=== PATIENT | male | born 1965 | race American Indian/Alaskan Native ===

== ENCOUNTER 2019-12-20 20:45 | Inpatient (IN) | payer OTHER ==
--- NOTE | 2019-12-20 20:54 | Event Note ---
ED Screening Note Date of service: 12/20/19 Time: 20:54 ED Screening Note: 54-year-old -[place] male presents to the emergency room for shortness of breath and chest pain. This initial assessment/diagnostic orders/clinical plan/treatment(s) is/are subject to change based on patients health status, clinical progression and re- assessment by fellow clinical providers in the ED. Further treatment and workup at subsequent clinical providers discretion. Patient/guardian urged not to elope from the ED as their condition may be serious if not clinically assessed and managed. Initial orders include:
[2019-12-20 21:10] LABS: Basophils # (Auto) 0.1 K/mm3 (0.0-0.1); Basophils % (Auto) 0.5 % (0.0-1.8); Eosinophils # (Auto) 0.2 K/mm3 (0.0-0.4); Eosinophils % (Auto) 1.9 % (0.0-4.3); Hematocrit 39.8 % (35.5-45.6); Hemoglobin 13.9 gm/dl (11.8-15.2); Lymphocytes # (Auto) 1.4 K/mm3 (1.2-5.4); Lymphocytes % (Auto) 11.9 % (13.4-35.0); Mean Corpuscular HGB Conc 35 % (32-34); Mean Corpuscular Volume 87 fl (84-94); Monocytes # (Auto) 1.2 K/mm3 (0.0-0.8); Monocytes % (Auto) 10.7 % (0.0-7.3); Platelet Count 213 K/mm3 (140-440); Red Blood Count 4.55 M/mm3 (3.65-5.03); Red Cell Distribution Width 14.2 % (13.2-15.2)
[2019-12-20 21:33] LABS: Alanine Aminotransferase 18 units/L (7-56); Albumin 3.9 g/dL (3.9-5); BUN/Creatinine Ratio 15; Blood Urea Nitrogen 20 mg/dL (9-20); Calcium 9.5 mg/dL (8.4-10.2); Hemolysis Index 8
--- NOTE | 2019-12-20 21:39 | XRay Report ---
CHEST 2 VIEWS, 12/20/2019 9:17 PM INDICATION: Chest pain. COMPARISON: None FINDINGS: Support devices: None Heart: The cardiac silhouette appears mildly enlarged. Lungs/pleura: There are faint bilateral pulmonary opacities, most prominent at the right lung base. Additional findings: There are moderate degenerative changes of the thoracic spine. IMPRESSION: 1. Faint bilateral pulmonary opacities. This is a nonspecific finding and could be secondary to mild pulmonary edema. Infectious or inflammatory process could have a similar appearance. Signer Name: Chely Spencer MD Signed: 12/20/2019 9:35 PM Workstation Name: [id number]
[2019-12-20] MEDS ORDERED: ONDANSETRON 4 MG/2 ML INJ IV ONE (22:59)
[2019-12-20] MEDS ORDERED: MORPHINE 2 MG/1 ML INJ IV ONE (22:59)
--- NOTE | 2019-12-20 23:07 | Emergency Department Report ---
ED Chest Pain HPI - General Chief Complaint: Chest Pain Stated Complaint: CHEST PAIN Time Seen by Provider: 12/20/19 20:52 Source: patient Mode of arrival: Wheelchair Limitations: No Limitations - History of Present Illness Initial Comments: 54-year-old male with history of hypertension, diabetes presents to ED with left-sided chest pain. Patient states chest pain initially began 3 days ago but resolved. States chest pain returned on yesterday but was intermittent. Pain has been constant today. Patient states pain is on the left side of his chest. The pain is sharp. The pain is worse with inspiration and laying supine. Patient denies fever, cough, sore throat, vomiting or diarrhea. He denies any known contact with any persons that are COVID positive. 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 He states that he has been having some swelling in the left that "has always been there. " MD Complaint: chest pain -: days(s) (3) Onset: during rest Pain Location: left chest Pain Radiation: none Severity: severe Quality: sharp Consistency: constant Improves With: other (sitting upright) Worsens With: supine re: dyspnea. denies: nausea, vomting, diaphoresis Other Symptoms: leg swelling. denies: cough, fever - Related Data Home Medications Medication Instructions Recorded Confirmed Last Taken No Known Home Medications [No 12/21/19 12/21/19 Unknown Reported Home Medications] Allergies Allergy/AdvReac Type Severity Reaction Status Date / Time No Known Allergies Allergy Verified 12/20/19 23:59 Heart Score - HEART Score History: Moderately suspicious EKG: Non-specific Age: 45-65 Risk factors: > 3 risk factors or hx of atherosclerotic disease Troponin: < normal limit HEART Score: 5 ED Review of Systems ROS: Stated complaint: CHEST PAIN Other details as noted in HPI Comment: All other systems reviewed and negative Constitutional: denies: chills, fever Respiratory: shortness of breath. denies: cough Cardiovascular: chest pain Gastrointestinal: denies: abdominal pain, nausea, vomiting, diarrhea Musculoskeletal: other (reports left leg swelling) ED Past Medical Hx - Medications Home Medications: Home Medications Medication Instructions Recorded Confirmed Last Taken Type No Known Home Medications [No 12/21/19 12/21/19 Unknown History Reported Home Medications] ED Physical Exam - General Limitations: No Limitations General appearance: alert, obese - Head Head exam: Present: atraumatic, normocephalic - Eye Eye exam: Present: normal appearance - ENT ENT exam: Present: mucous membranes moist - Neck Neck exam: Present: normal inspection - Respiratory Respiratory exam: Present: normal lung sounds bilaterally. Absent: respiratory distress - Cardiovascular Cardiovascular Exam: Present: tachycardia - GI/Abdominal GI/Abdominal exam: Present: soft. Absent: distended, tenderness - Extremities Exam Extremities exam: Present: other (left lower leg swelling present) - Neurological Exam Neurological exam: Present: alert, oriented X3 - Psychiatric Psychiatric exam: Present: normal affect, normal mood - Skin Skin exam: Present: warm, dry, intact, normal color ED Course Vital Signs 12/20/19 12/20/19 12/20/19 20:48 22:24 22:45 Temperature 97.7 F Pulse Rate 92 H 171 H 145 H Respiratory 18 14 35 H Rate Blood Pressure 151/83 Blood Pressure 145/72 [Left] O2 Sat by Pulse 93 93 Oximetry 12/20/19 12/20/19 12/20/19 23:01 23:13 23:57 Temperature Pulse Rate 150 H 150 H 175 H Respiratory 50 H 35 H Rate Blood Pressure 147/92 149/83 Blood Pressure [Left] O2 Sat by Pulse 95 96 Oximetry 12/21/19 12/21/19 12/21/19 00:01 00:49 01:01 Temperature Pulse Rate 100 H 113 H 88 Respiratory 41 H 25 H Rate Blood Pressure 143/65 138/70 138/70 Blood Pressure [Left] O2 Sat by Pulse 94 96 Oximetry 12/21/19 12/21/19 12/21/19 01:30 02:01 02:31 Temperature Pulse Rate 177 H 152 H Respiratory 29 H 22 27 H Rate Blood Pressure 138/70 150/65 159/130 Blood Pressure [Left] O2 Sat by Pulse 99 96 Oximetry 12/21/19 12/21/19 12/21/19 03:01 03:31 04:01 Temperature Pulse Rate 180 H 149 H 150 H Respiratory 31 H 34 H 22 Rate Blood Pressure 150/65 150/65 150/65 Blood Pressure [Left] O2 Sat by Pulse 97 95 96 Oximetry 12/21/19 12/21/19 12/21/19 04:31 05:01 05:05 Temperature Pulse Rate 166 H 138 H 150 H Respiratory 19 30 H Rate Blood Pressure 132/72 128/79 128/79 Blood Pressure [Left] O2 Sat by Pulse 97 98 Oximetry 12/21/19 12/21/19 12/21/19 05:31 06:01 06:30 Temperature Pulse Rate 142 H 149 H 148 H Respiratory 35 H 30 H 22 Rate Blood Pressure 128/79 128/79 115/85 Blood Pressure [Left] O2 Sat by Pulse 97 95 97 Oximetry 12/21/19 12/21/19 12/21/19 07:00 07:31 08:01 Temperature Pulse Rate 90 148 H 148 H Respiratory 32 H 28 H 18 Rate Blood Pressure 121/75 106/83 121/85 Blood Pressure [Left] O2 Sat by Pulse 97 96 96 Oximetry - Reevaluation(s) Reevaluation #1: 12/20/19 23:54 Pt w/ HR ranging from 130s to 180s. Repeat EKG shows Afib w/ RVR. Will give cardizem. 12/21/19 00:02 HR currently 90s-100s, following cardizem. Will initiate drip. Reevaluation #2: 12/21/19 02:31 Spoke w/ hospitalist, Dr Monk, who will admit. Would like COVID test sent and initiate rocephin, azithromycin, and hydroxychloroquine. ED Medical Decision Making - Lab Data Result diagrams: 12/24/19 03:39 12/24/19 03:39 - EKG Data -: EKG Interpreted by Ia EKG shows normal: QRS complexes, ST-T waves Rate: tachycardia (rate 165) - EKG Data Interpretation: other (Afib w/ RVR) - Radiology Data Radiology results: report reviewed, image reviewed - Medical Decision Making 54-year-old male with left-sided chest pain, shortness of breath x3 days. Patient reports pain is pleuritic, worse with laying supine. Chest x-ray was done which showed faint bilateral opacities, so COVID-19 was considered, althoug h patient denies fever, cough, vomiting or diarrhea. Patient was found to be tachycardic. Initial EKG showed normal heart rate. EKG was repeated which showed A. fib with RVR. Cardizem bolus was given. Patient responded well with heart rate decreasing from the 160s to the 90s. Cardizem and heparin drip were also initiated. Patient reports some relief of his chest pain after heart rate improved. CT scan negative for PE, but shows moderate left-sided pleural effusion which is likely the cause of patient's discomfort. I spoke with hospitalist Dr. Donnelly, requested COVID testing for patient and initiation of rocephin, azithromycin, and hydroxychloroquine. Patient will be admitted for further management. - Differential Diagnosis PE, pneumothroax, pneumonia, COVID infection Critical Care Time: Yes Critical care time in (mins) excluding proc time.: 35 Critical care attestation.: If time is entered above; I have spent that time in minutes in the direct care of this critically ill patient, excluding procedure time. Critical Care Time: 35 min ED Disposition Clinical Impression: Atrial fibrillation with rapid ventricular response, Pleural effusion, Suspected 2019 novel coronavirus infection Disposition: 09 OP ADMIT IP TO THIS HOSP Is pt being admited?: Yes Condition: Stable Time of Disposition: 03:33
[2019-12-20] MEDS ORDERED: dilTIAZem 50 MG/10 ML INJ ONE (23:42)
[2019-12-20] MEDS ORDERED: dilTIAZem 25 MG/5 ML INJ IV ONE (23:52)
[2019-12-20 23:57] LABS: INR 1.36 (0.87-1.13)
[2019-12-20 23:58] LABS: Partial Thromboplastin Time 28.7 Sec. (24.2-36.6)
[2019-12-21 00:51] LABS: C-Reactive Protein 42.1 mg/dL (0.00-1.30)
[2019-12-21] MEDS ORDERED: dilTIAZem/D5W 100 MG/100 ML BAG IV SCH (01:00)
[2019-12-21] MEDS ORDERED: HEPARIN 10,000 UNITS/10 ML VIAL IV ONE (01:06)
[2019-12-21] MEDS ORDERED: HEPARIN/ 0.45% NACL DRIP 25,000 UNIT/500 ML BAG IV SCH (02:00)
[2019-12-21] MEDS ORDERED: MORPHINE 4 MG/1 ML INJ ONE (02:05)
--- NOTE | 2019-12-21 02:19 | Cat Scan Report ---
CTA CHEST WITH CONTRAST INDICATION / CLINICAL INFORMATION: Pt complains of LEFT chest pain, S.O.B., Possible [place] Virus. Also Possible P.E. Omnipaque 350 / 100ml's was used for this exam.. COVID-19 Status: Uncertain TECHNIQUE: Axial CT images were obtained through the chest after injection of IV contrast. 3 plane MIP and/or 3D reconstructions were produced. All CT scans at this location are performed using CT dose reduction f or ALARA by means of automated exposure control. COMPARISON: Chest radiograph dated 12/20/19 FINDINGS: PULMONARY ARTERIES: No pulmonary emboli. THORACIC AORTA: No significant abnormality. HEART: Heart is mildly enlarged. No pericardial effusion. CORONARY ARTERIES: No significant calcification. MEDIASTINUM / ASHER: No significant abnormality. PLEURA: Moderate sized left pleural effusion. No pneumothorax. LUNGS: Moderate passive atelectasis of the left lower lobe related to pleural effusion. Multiple nodu lar densities throughout the right lung involving all lobes. These nodules have slightly fuzzy margin s and could be inflammatory in nature. No definite groundglass opacities. ADDITIONAL FINDINGS: None. UPPER ABDOMEN: No acute findings. SKELETAL STRUCTURES: No significant osseous abnormality. IMPRESSION: 1. No CT evidence for pulmonary embolism. 2. Moderate left pleural effusion with passive atelectasis of the left lower lobe. 3. Multiple nodular densities throughout the right lung which could possibly be inflammatory in natur e. Signer Name: Adilia Velarde MD Signed: 12/21/2019 2:14 AM Workstation Name: [id number]
[2019-12-21] MEDS ORDERED: MORPHINE 4 MG/1 ML INJ IV ONE (02:24)
[2019-12-21] MEDS ORDERED: cefTRIAXone/NS 1 GM/50 ML 1 GM/50 ML BAG IV ONE (02:34)
[2019-12-21] MEDS ORDERED: AZITHROMYCIN 250 MG TAB PO ONE (02:35)
[2019-12-21] MEDS ORDERED: HYDROXYCHLOROQUINE 200 MG TAB PO ONE ×2 (03:30→14:00)
[2019-12-21] MEDS ORDERED: ONDANSETRON 4 MG/2 ML INJ IV PRN (04:30)
[2019-12-21] MEDS ORDERED: NALOXONE 0.4 MG/1 ML INJ IV PRN (04:30)
[2019-12-21] MEDS ORDERED: FUROSEMIDE 40 MG/4 ML INJ IV STA (04:30)
[2019-12-21] MEDS ORDERED: LIDOCAINE-MPF (1%) 10 MG/1 ML VIAL 5 ML INFILTRATI ONE (04:40)
[2019-12-21] MEDS ORDERED: METOPROLOL TARTRATE 5 MG/5 ML INJ IV STA (04:43)
--- NOTE | 2019-12-21 04:52 | History and Physical Report ---
History of Present Illness Date of examination: 12/21/19 Date of admission: 12/21/19 Chief complaint: Chest Pain X 3 days History of present illness: 54-year-old male with history of Hypertension, Diabetes, truncal obesity, presents to ED with left-sided chest pain in the last 3 days. Patient states chest pain initially began 3 days ago but resolved. States chest discomfort returned on yesterday but was intermittent this time around, with on and off consistency. Pain has been constant all day and so he decided to seek medical attention today. Patient states pain is on the left side of his chest, and sharp. The pain is worse with inspiration and laying supine. Patient denies any general malaise, arthralgia, loss of taste or smell, low grade fever, high fever, cough, sore throat, vomiting or diarrhea. He denies any known contact with any person that is COVID 19 positive. 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 He states that he has been having some swelling in the left side of his trunk, that "has always been there. " PT denies any previous hx of DVT, PE, CP, sudden .. In the ED, pt was found to have bilateral opacities on CXR. A stat CTA PE protocol was done and it was negative for a PE however it revealed a left sided Moderate effusion. COVID 19 was considered and so pt was placed in a droplet and contact isolations COVID19: Pending Past History Past Medical History: diabetes, hypertension Social history: IV drug use, full code. denies: smoking, alcohol abuse, prescription drug abuse Family history: diabetes Medications and Allergies Allergies Allergy/AdvReac Type Severity Reaction Status Date / Time No Known Allergies Allergy Verified 12/20/19 23:59 Active Meds: Active Medications Acetaminophen (Tylenol) 650 mg PO Q4H PRN PRN Reason: Pain MILD(1-3)/Fever >100.5/NOLASCO Furosemide (Lasix) 20 mg IV QDAY YVETTE Hydroxychloroquine Sulfate (Plaquenil) 400 mg PO ONCE ONE Stop: 12/21/19 14:01 Diltiazem HCl (Cardizem/D5w 100mg/100ml) 100 mg in 100 mls @ 5 mls/hr IV TITR YVETTE; Protocol Last Titration: 12/21/19 02:22 Dose: 15 mg/hr, 15 mls/hr Documented by: Heparin Sodium/Sodium Chloride (Heparin/ 0.45% Nacl-25,000 Unit/500 Ml) 25,000 unit in 500 mls @ 30 mls/hr IV TITR YVETTE; Protocol Last Admin: 12/21/19 02:03 Dose: 1,500 units/hr, 30 mls/hr Documented by: Ceftriaxone Sodium 2,000 mg/ (Sodium Chloride) 50 mls @ 100 mls/hr IV DAILY NR; Protocol Lidocaine (Xylocaine 1% Mpf 5 Ml) 2 ml INFILTRATI ONCE ONE Stop: 12/21/19 04:41 Metoprolol Tartrate (Metoprolol) 5 mg IV ONCE STA Stop: 12/21/19 04:44 Morphine Sulfate (Morphine) 2 mg IV Q4H PRN PRN Reason: Pain, Moderate (4-6) Naloxone HCl (Naloxone) 0.1 mg IV Q2MIN PRN PRN Reason: Res Rate </= 8 or 02 SAT < 92% Ondansetron HCl (Zofran) 4 mg IV Q8H PRN PRN Reason: Nausea And Vomiting Oxycodone/Acetaminophen (Percocet 5/325) 1 tab PO Q6H PRN PRN Reason: Pain, Moderate (4-6) Sodium Chloride (Sodium Chloride Flush Syringe 10 Ml) 10 ml IV BID YVETTE Sodium Chloride (Sodium Chloride Flush Syringe 10 Ml) 10 ml IV PRN PRN PRN Reason: LINE FLUSH Review of Systems All systems: negative Respiratory: shortness of breath, pain on inspiration Exam - Constitutional Vitals: Temp Pulse Resp BP Pulse Ox 97.7 F 88 25 H 138/70 96 12/20/19 20:48 12/21/19 01:01 12/21/19 01:01 12/21/19 01:01 12/21/19 01:01 General appearance: Present: no acute distress, well-nourished - EENT Eyes: Present: PERRL ENT: hearing intact, clear oral mucosa - Neck Neck: Present: supple, normal ROM - Respiratory Respiratory effort: normal Respiratory: left: diminished, rhonchi, bilateral: CTA - Cardiovascular Heart Sounds: Present: S1 & S2. Absent: rub, click - Extremities Extremities: pulses symmetrical, No edema Peripheral Pulses: within normal limits - Abdominal General gastrointestinal: Present: soft, non-tender, non-distended, normal bowel sounds Male genitourinary: Present: normal - Integumentary Integumentary: Present: clear, warm, dry - Musculoskeletal Musculoskeletal: gait normal, strength equal bilaterally - Psychiatric Psychiatric: appropriate mood/affect, intact judgment & insight - Neurologic Neurologic: CNII-XII intact, moves all extremities Results - Labs CBC & Chem 7: 12/20/19 20:59 12/20/19 20:59 Labs: Laboratory Last Values WBC 11.4 K/mm3 (4.5-11.0) H 12/20/19 20:59 RBC 4.55 M/mm3 (3.65-5.03) 12/20/19 20:59 Hgb 13.9 gm/dl (11.8-15.2) 12/20/19 20:59 Hct 39.8 % (35.5-45.6) 12/20/19 20:59 MCV 87 fl (84-94) 12/20/19 20:59 MCH 31 pg (28-32) 12/20/19 20:59 MCHC 35 % (32-34) H 12/20/19 20:59 RDW 14.2 % (13.2-15.2) 12/20/19 20:59 Plt Count 213 K/mm3 (140-440) 12/20/19 20:59 Lymph % (Auto) 11.9 % (13.4-35.0) L 12/20/19 20:59 Hill % (Auto) 10.7 % (0.0-7.3) H 12/20/19 20:59 Eos % (Auto) 1.9 % (0.0-4.3) 12/20/19 20:59 Baso % (Auto) 0.5 % (0.0-1.8) 12/20/19 20:59 Lymph # 1.4 K/mm3 (1.2-5.4) 12/20/19 20:59 Hill # 1.2 K/mm3 (0.0-0.8) H 12/20/19 20:59 Eos # 0.2 K/mm3 (0.0-0.4) 12/20/19 20:59 Baso # 0.1 K/mm3 (0.0-0.1) 12/20/19 20:59 Seg Neutrophils % 75.0 % (40.0-70.0) H 12/20/19 20:59 Seg Neutrophils # 8.6 K/mm3 (1.8-7.7) H 12/20/19 20:59 PT 17.0 Sec. (12.2-14.9) H 12/20/19 23:06 INR 1.36 (0.87-1.13) H 12/20/19 23:06 APTT 28.7 Sec. (24.2-36.6) 12/20/19 23:06 D-Dimer 870.11 ng/mlDDU (0-234) H 12/20/19 23:06 Sodium 134 mmol/L (137-145) L 12/20/19 20:59 Potassium 4.4 mmol/L (3.6-5.0) 12/20/19 20:59 Chloride 95.6 mmol/L (98-107) L 12/20/19 20:59 Carbon Dioxide 22 mmol/L (22-30) 12/20/19 20:59 Anion Gap 21 mmol/L 12/20/19 20:59 BUN 20 mg/dL (9-20) 12/20/19 20:59 Creatinine 1.3 mg/dL (0.8-1.5) 12/20/19 20:59 Estimated GFR > 60 ml/min 12/20/19 20:59 BUN/Creatinine Ratio 15 % 12/20/19 20:59 Glucose 174 mg/dL (75-100) H 12/20/19 20:59 Calcium 9.5 mg/dL (8.4-10.2) 12/20/19 20:59 Ferritin 454.6 ng/mL (13.0-400.0) H 12/20/19 23:06 Total Bilirubin 0.50 mg/dL (0.1-1.2) 12/20/19 20:59 AST 16 units/L (5-40) 12/20/19 20:59 ALT 18 units/L (7-56) 12/20/19 20:59 Alkaline Phosphatase 66 units/L (35-129) 12/20/19 20:59 Lactate Dehydrogenase 193 units/L (91-180) H 12/20/19 23:06 Troponin T < 0.010 ng/mL (0.00-0.029) 12/21/19 03:43 C-Reactive Protein 42.10 mg/dL (0.00-1.30) H 12/20/19 23:06 NT-Pro-B Natriuret Pep 134.4 pg/mL (0-900) 12/20/19 23:06 Total Protein 8.7 g/dL (6.3-8.2) H 12/20/19 20:59 Albumin 3.9 g/dL (3.9-5) 12/20/19 20:59 Albumin/Globulin Ratio 0.8 % 12/20/19 20:59 Lipase 21 units/L (13-60) 12/20/19 20:59 Cuevas/IV: IV Catheter Type [Left INT / Saline Lock Antecubital] IV Catheter Type [Left Hand] INT / Saline Lock Assessment and Plan Assessment and plan: CHest Pain -Etiology sought in this pt with moderate left pleural effusion, bilateral infiltrates on CXR and slightly positive serum inflammatory markers that are suggestive of Covid 19. - Start Rocephin IV and Hydrochloroquine -Droplet and contact isolations ordered - Cycle Troponins, CHeck an TTecho - continue telemonitoring LEft Pleural effusion - etiology sought? CHF vs inflammatory causes - await TTEcho, PACO, RF -continue OXygen support - IV lasix Afib with RVR - Due to moderate left pleural effusion - continue heparin gtt, Cardizem gtt - intermittent use of Lopressor HTN - essential and longstanding -LVH present on ECG. - control BP effectively DM - Accuchecks - monitor full code.
[2019-12-21] MEDS: MORPHINE 2 MG/1 ML INJ IV PRN ×2 (08:58→17:26)
--- NOTE | 2019-12-21 09:58 | Progress Note ---
Assessment and Plan Assessment and plan: COVID-19 suspected - Etiology sought in this pt with moderate left pleural effusion, bilateral infiltrates on CXR and slightly positive serum inflammatory markers that are suggestive of Covid 19. - Start Rocephin IV and Hydrochloroquine - Droplet and contact isolations ordered - Cycle Troponins, CHeck an TTecho - continue telemonitoring Bilateral pneumonia. Continue antibiotics as above Sepsis. Continue antibiotics and follow-up blood cultures. Left Pleural effusion - etiology likely parapneumonic - await Echo, PACO, RF - continue Oxygen support - IV lasix Acute hypoxemic respiratory failure. Etiology secondary to above. Continue O2 for supportive care Afib with RVR - Due to moderate left pleural effusion - continue heparin gtt, Cardizem gtt - intermittent use of Lopressor HTN - essential and longstanding - LVH present on ECG. - control BP effectively DM - Accuchecks - monitor full code. History Interval history: No new issues overnight. COVID19: Pending Hospitalist Physical - Constitutional Vitals: Temp Pulse Resp BP Pulse Ox 97.7 F 147 H 18 138/83 92 12/20/19 20:48 12/21/19 08:52 12/21/19 08:58 12/21/19 08:52 12/21/19 08:52 General appearance: Present: no acute distress, well-nourished - EENT Eyes: Present: PERRL, EOM intact ENT: hearing intact, clear oral mucosa, dentition normal - Neck Neck: Present: supple, normal ROM - Respiratory Respiratory effort: normal Respiratory: bilateral: CTA - Cardiovascular Rhythm: regular Heart Sounds: Present: S1 & S2. Absent: gallop, rub - Extremities Extremities: no ischemia, No edema, Full ROM - Abdominal General gastrointestinal: soft, non-tender, non-distended, normal bowel sounds - Integumentary Integumentary: Present: clear, warm, dry - Neurologic Neurologic: CNII-XII intact, moves all extremities Results - Labs CBC & Chem 7: 12/20/19 20:59 12/20/19 20:59 Labs: Laboratory Last Values WBC 11.4 K/mm3 (4.5-11.0) H 12/20/19 20:59 RBC 4.55 M/mm3 (3.65-5.03) 12/20/19 20:59 Hgb 13.9 gm/dl (11.8-15.2) 12/20/19 20:59 Hct 39.8 % (35.5-45.6) 12/20/19 20:59 MCV 87 fl (84-94) 12/20/19 20:59 MCH 31 pg (28-32) 12/20/19 20:59 MCHC 35 % (32-34) H 12/20/19 20:59 RDW 14.2 % (13.2-15.2) 12/20/19 20:59 Plt Count 213 K/mm3 (140-440) 12/20/19 20:59 Lymph % (Auto) 11.9 % (13.4-35.0) L 12/20/19 20:59 [place] % (Auto) 10.7 % (0.0-7.3) H 12/20/19 20:59 Eos % (Auto) 1.9 % (0.0-4.3) 12/20/19 20:59 Baso % (Auto) 0.5 % (0.0-1.8) 12/20/19 20:59 Lymph # 1.4 K/mm3 (1.2-5.4) 12/20/19 20:59 [place] # 1.2 K/mm3 (0.0-0.8) H 12/20/19 20:59 Eos # 0.2 K/mm3 (0.0-0.4) 12/20/19 20:59 Baso # 0.1 K/mm3 (0.0-0.1) 12/20/19 20:59 Seg Neutrophils % 75.0 % (40.0-70.0) H 12/20/19 20:59 Seg Neutrophils # 8.6 K/mm3 (1.8-7.7) H 12/20/19 20:59 PT 17.0 Sec. (12.2-14.9) H 12/20/19 23:06 INR 1.36 (0.87-1.13) H 12/20/19 23:06 APTT 28.7 Sec. (24.2-36.6) 12/20/19 23:06 D-Dimer 870.11 ng/mlDDU (0-234) H 12/20/19 23:06 Sodium 134 mmol/L (137-145) L 12/20/19 20:59 Potassium 4.4 mmol/L (3.6-5.0) 12/20/19 20:59 Chloride 95.6 mmol/L (98-107) L 12/20/19 20:59 Carbon Dioxide 22 mmol/L (22-30) 12/20/19 20:59 Anion Gap 21 mmol/L 12/20/19 20:59 BUN 20 mg/dL (9-20) 12/20/19 20:59 Creatinine 1.3 mg/dL (0.8-1.5) 12/20/19 20:59 Estimated GFR > 60 ml/min 12/20/19 20:59 BUN/Creatinine Ratio 15 % 12/20/19 20:59 Glucose 174 mg/dL (75-100) H 12/20/19 20:59 Calcium 9.5 mg/dL (8.4-10.2) 12/20/19 20:59 Ferritin 454.6 ng/mL (13.0-400.0) H 12/20/19 23:06 Total Bilirubin 0.50 mg/dL (0.1-1.2) 12/20/19 20:59 AST 16 units/L (5-40) 12/20/19 20:59 ALT 18 units/L (7-56) 12/20/19 20:59 Alkaline Phosphatase 66 units/L (35-129) 12/20/19 20:59 Lactate Dehydrogenase 193 units/L (91-180) H 12/20/19 23:06 Troponin T < 0.010 ng/mL (0.00-0.029) 12/21/19 03:43 C-Reactive Protein 42.10 mg/dL (0.00-1.30) H 12/20/19 23:06 NT-Pro-B Natriuret Pep 134.4 pg/mL (0-900) 12/20/19 23:06 Total Protein 8.7 g/dL (6.3-8.2) H 12/20/19 20:59 Albumin 3.9 g/dL (3.9-5) 12/20/19 20:59 Albumin/Globulin Ratio 0.8 % 12/20/19 20:59 Lipase 21 units/L (13-60) 12/20/19 20:59 Procalcitonin 0.61 ng/mL (<0.15) 12/20/19 23:06 Cuevas/IV: Voiding Method Urinal IV Catheter Type [Left INT / Saline Lock Antecubital] IV Catheter Type [Left Hand] INT / Saline Lock Active Medications - Current Medications Current Medications: Generic Name Dose Route Start Last Admin Trade Name Freq PRN Reason Stop Dose Admin Acetaminophen 650 mg 12/21/19 04:30 Tylenol PO Q4H PRN Pain MILD(1-3)/Fever >100.5/NOLASCO Furosemide 20 mg 12/21/19 10:00 Lasix IV QDAY YVETTE Hydroxychloroquine Sulfate 400 mg 12/21/19 14:00 Plaquenil PO 12/21/19 14:01 ONCE ONE Diltiazem HCl 100 mg in 100 mls @ 5 mls/hr 12/21/19 01:00 12/21/19 02:22 Cardizem/D5w 100mg/100ml IV 15 mg/hr TITR YVETTE 15 mls/hr Titration Protocol 5 MG/HR Heparin Sodium/Sodium Chloride 25,000 unit in 500 mls @ 30 mls/hr 12/21/19 02:00 12/21/19 02:03 Heparin/ 0.45% Nacl-25,000 Unit/500 Ml IV 1,500 units/hr TITR YVETTE 30 mls/hr Administration Protocol 1,500 UNITS/HR Ceftriaxone Sodium 2,000 mg/ 50 mls @ 100 mls/hr 12/22/19 10:00 Sodium Chloride IV 12/27/19 23:59 DAILY NR Protocol Morphine Sulfate 2 mg 12/21/19 04:30 12/21/19 08:58 Morphine IV 2 mg Q4H PRN Administration Pain, Moderate (4-6) Naloxone HCl 0.1 mg 12/21/19 04:30 Naloxone IV Q2MIN PRN Res Rate </= 8 or 02 SAT < 92% Ondansetron HCl 4 mg 12/21/19 04:30 Zofran IV Q8H PRN Nausea And Vomiting Oxycodone/Acetaminophen 1 tab 12/21/19 04:30 Percocet 5/325 PO Q6H PRN Pain, Moderate (4-6) Sodium Chloride 10 ml 12/21/19 10:00 Sodium Chloride Flush Syringe 10 Ml IV BID YVETTE Sodium Chloride 10 ml 12/21/19 04:30 Sodium Chloride Flush Syringe 10 Ml IV PRN PRN LINE FLUSH
[2019-12-21 10:41] LABS: Hematocrit 44.2 % (35.5-45.6); Hemoglobin 14.6 gm/dl (11.8-15.2); Mean Corpuscular HGB Conc 33 % (32-34); Mean Corpuscular Volume 89 fl (84-94); Platelet Count 240 K/mm3 (140-440); Red Blood Count 4.97 M/mm3 (3.65-5.03); Red Cell Distribution Width 13.6 % (13.2-15.2)
[2019-12-21] MEDS: FUROSEMIDE 20 MG/2 ML INJ IV SCH (10:54)
[2019-12-21 10:55] LABS: INR 1.35 (0.87-1.13)
[2019-12-21 11:21] LABS: Partial Thromboplastin Time 40.2 Sec. (24.2-36.6)
[2019-12-21 11:24] LABS: BUN/Creatinine Ratio 17; Blood Urea Nitrogen 25 mg/dL (9-20); Calcium 9.3 mg/dL (8.4-10.2); Hemolysis Index 0
[2019-12-21 12:10] LABS: Band Neutrophils # (Manual) 0.6 K/mm3; Basophils % (Manual) 0 % (0.0-1.8); Total Cells Counted 100
[2019-12-21 12:12] LABS: Large Platelets Rare; Platelet Estimate Consistent w Auto; RBC Morphology Normal
--- NOTE | 2019-12-21 13:45 | Consultation ---
History of Present Illness Consult date: 12/21/19 Requesting physician: KIM SIMMS Consult reason: atrial fibrillation History of present illness: the pt is a 54-year-old male with a past medical history of HTN and DM. He is previously unknown to our practice. He presented with "pain all over the left side" of his body and some SOB which began about 3 days ago. Patient states he is experiencing some left sided chest pain, pain is on the left side of his chest, and sharp. The pain is worse with inspiration and laying supine. Patient denies any general malaise, arthralgia, loss of taste or smell, low grade fever, high fever, cough, sore throat, vomiting or diarrhea. He denies any known contact with any person that is COVID 19 positive. 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 He states that he has been having some swelling in the left side of his trunk, that "has always been there. " Following arrival, pt noted to have AFib with RVR and was initiated on cardizem gtt and heparin gtt overnight. On evaluation, he has since converted to NSR. Pt denies any known prior cardiac issues. Of note, pt is currently COVID-19 PUI. Past History Past Medical History: diabetes, hypertension Social history: IV drug use, full code. denies: smoking, alcohol abuse, prescription drug abuse Family history: diabetes Medications and Allergies Allergies Allergy/AdvReac Type Severity Reaction Status Date / Time No Known Allergies Allergy Verified 12/20/19 23:59 Active Meds: Active Medications Acetaminophen (Tylenol) 650 mg PO Q4H PRN PRN Reason: Pain MILD(1-3)/Fever >100.5/NOLASCO Furosemide (Lasix) 20 mg IV QDAY [facility] Last Admin: 12/21/19 10:54 Dose: 20 mg Documented by: Hydroxychloroquine Sulfate (Plaquenil) 400 mg PO ONCE ONE Stop: 12/21/19 14:01 Ceftriaxone Sodium (Rocephin/Ns 2 Gm/100 Ml) 2 gm in 100 mls @ 200 mls/hr IV QHS [facility] Stop: 12/27/19 23:59 Morphine Sulfate (Morphine) 2 mg IV Q4H PRN PRN Reason: Pain, Moderate (4-6) Last Admin: 12/21/19 08:58 Dose: 2 mg Documented by: Naloxone HCl (Naloxone) 0.1 mg IV Q2MIN PRN PRN Reason: Res Rate </= 8 or 02 SAT < 92% Ondansetron HCl (Zofran) 4 mg IV Q8H PRN PRN Reason: Nausea And Vomiting Oxycodone/Acetaminophen (Percocet 5/325) 1 tab PO Q6H PRN PRN Reason: Pain, Moderate (4-6) Sodium Chloride (Sodium Chloride Flush Syringe 10 Ml) 10 ml IV BID YVETTE Last Admin: 12/21/19 10:54 Dose: 10 ml Documented by: Sodium Chloride (Sodium Chloride Flush Syringe 10 Ml) 10 ml IV PRN PRN PRN Reason: LINE FLUSH Review of Systems Constitutional: no weight loss, no weight gain, no fever, no chills, no sweats Ears, nose, mouth and throat: no ear pain, no nose pain, no sinus pressure, no sinus pain Cardiovascular: chest pain, shortness of breath, no palpitations, no rapid/irregular heart beat Respiratory: shortness of breath, pain on inspiration, no cough, no congestion, no wheezing Gastrointestinal: no abdominal pain, no nausea, no vomiting, no diarrhea, no constipation, no change in bowel habits, no hematemesis Genitourinary Male: no dysuria, no hematuria, no flank pain, no discharge, no urinary frequency, no urinary hesitancy Musculoskeletal: no neck stiffness, no neck pain, no shooting arm pain, no arm numbness/tingling, no low back pain, no shooting leg pain Integumentary: no rash, no pruritis, no redness, no sores, no wounds Neurological: no head injury, no paralysis, no weakness, no parathesias, no numbness, no tingling, no seizures, no syncope Psychiatric: no anxiety Endocrine: no cold intolerance, no heat intolerance Hematologic/Lymphatic: no easy bruising Allergic/Immunologic: no urticaria Physical Examination Vital Signs Temp Pulse Resp BP Pulse Ox 97.7 F 92 H 18 151/83 93 12/20/19 20:48 12/20/19 20:48 12/20/19 20:48 12/20/19 20:48 12/20/19 20:48 General appearance: no acute distress HEENT: Positive: PERRL, Normocephaly, Mucus Membranes Moist Neck: Positive: neck supple, trachea midline Cardiac: Positive: Reg Rate and Rhythm, S1/S2 Lungs: Positive: Decreased Breath Sounds Neuro: Positive: Grossly Intact Abdomen: Negative: Tender Male genitourinary: Negative: tender Skin: Negative: Rash Musculoskeletal: No Pain Extremities: Absent: edema Results 12/21/19 10:35 12/21/19 10:35 Cardiac Enzymes 12/20/19 12/20/19 Range/Units 20:59 23:06 AST 16 (5-40) units/L Lactate Dehydrogenase 193 H (91-180) units/L Coagulation 12/20/19 12/21/19 Range/Units 23:06 10:35 PT 17.0 H 16.9 H (12.2-14.9) Sec. INR 1.36 H 1.35 H (0.87-1.13) APTT 28.7 40.2 H (24.2-36.6) Sec. CBC 12/20/19 12/21/19 Range/Units 20:59 10:35 WBC 11.4 H 21.3 H (4.5-11.0) K/mm3 RBC 4.55 4.97 (3.65-5.03) M/mm3 Hgb 13.9 14.6 (11.8-15.2) gm/dl Hct 39.8 44.2 (35.5-45.6) % Plt Count 213 240 (140-440) K/mm3 Lymph # 1.4 (1.2-5.4) K/mm3 [place] # 1.2 H (0.0-0.8) K/mm3 Eos # 0.2 (0.0-0.4) K/mm3 Baso # 0.1 (0.0-0.1) K/mm3 Comprehensive Metabolic Panel 12/20/19 12/21/19 Range/Units 20:59 10:35 Sodium 134 L 137 (137-145) mmol/L Potassium 4.4 5.4 H D (3.6-5.0) mmol/L Chloride 95.6 L 93.8 L (98-107) mmol/L Carbon Dioxide 22 23 (22-30) mmol/L BUN 20 25 H (9-20) mg/dL Creatinine 1.3 1.5 (0.8-1.5) mg/dL Glucose 174 H 239 H (75-100) mg/dL Calcium 9.5 9.3 (8.4-10.2) mg/dL AST 16 (5-40) units/L ALT 18 (7-56) units/L Alkaline Phosphatase 66 (35-129) units/L Total Protein 8.7 H (6.3-8.2) g/dL Albumin 3.9 (3.9-5) g/dL - Imaging and Cardiology EKG: report reviewed, image reviewed EKG interpretations - Telemetry EKG Rhythm: Sinus Rhythm - EKG Supraventricular dysrhythmia: atrial fibrillation Assessment and Plan Pt has converted to NSR. D/c cardizem and heparin gtts. Initiate PO cardizem and Eliquis. Obtain thyroid profile and serum Mg. R/o COVID-19 per primary team. Pro-BNP WNL. Obtain echo pending COVID test results. Cont to monitor closely on telemetry. Further recs to follow per hospital course. The patient has been seen in conjunction with Dr. Roa who agrees with the assessment and plan of care. - Patient Problems (1) Atrial fibrillation with rapid ventricular response Current Visit: Yes Status: Acute (2) Pleural effusion Current Visit: Yes Status: Acute (3) Suspected 2019 novel coronavirus infection Current Visit: Yes Status: Acute (4) HTN (hypertension) Current Visit: Yes Status: Chronic (5) Diabetes Current Visit: Yes Status: Chronic
--- NOTE | 2019-12-21 15:18 | Consultation ---
History of Present Illness - Reason for Consult Consult date: 12/21/19 COVID rule out Requesting physician: BRITNEY GOINS COVID19: Pending - History of Present Illness The patient is a 54-year-old male with hypertension, diabetes, obesity who came into the emergency room with complaints of left-sided chest pain. CT chest revealed evidence of left-sided pleural effusion along with nodular densities in his right lung. Infectious diseases was consulted due to elevated WBC and concern for possible COVID. History obtained by chart review due to PPE shortage. Low grade fever + Review of Systems: reviewed in the chart, unable to obtain directly due to PPE shortage and preservation Past History Past Medical History: diabetes, hypertension Social history: IV drug use, full code. denies: smoking, alcohol abuse, prescription drug abuse Family history: diabetes Medications and Allergies Allergies Allergy/AdvReac Type Severity Reaction Status Date / Time No Known Allergies Allergy Verified 12/20/19 23:59 Active Meds: Active Medications Acetaminophen (Tylenol) 650 mg PO Q4H PRN PRN Reason: Pain MILD(1-3)/Fever >100.5/NOLASCO Apixaban (Eliquis) 5 mg PO Q12HR [facility]; Protocol Diltiazem HCl (Cardizem) 60 mg PO Q6HR YVETTE Furosemide (Lasix) 20 mg IV QDAY [facility] Last Admin: 12/21/19 10:54 Dose: 20 mg Documented by: Ceftriaxone Sodium (Rocephin/Ns 2 Gm/100 Ml) 2 gm in 100 mls @ 200 mls/hr IV QHS [facility] Stop: 12/27/19 23:59 Morphine Sulfate (Morphine) 2 mg IV Q4H PRN PRN Reason: Pain, Moderate (4-6) Last Admin: 12/21/19 08:58 Dose: 2 mg Documented by: Naloxone HCl (Naloxone) 0.1 mg IV Q2MIN PRN PRN Reason: Res Rate </= 8 or 02 SAT < 92% Ondansetron HCl (Zofran) 4 mg IV Q8H PRN PRN Reason: Nausea And Vomiting Oxycodone/Acetaminophen (Percocet 5/325) 1 tab PO Q6H PRN PRN Reason: Pain, Moderate (4-6) Sodium Chloride (Sodium Chloride Flush Syringe 10 Ml) 10 ml IV BID [facility] Last Admin: 04/14/20 10:54 Dose: 10 ml Documented by: Sodium Chloride (Sodium Chloride Flush Syringe 10 Ml) 10 ml IV PRN PRN PRN Reason: LINE FLUSH Physical Examination - Physical Exam Narrative exam: Physical Exam (reviewed in chart due to PPE conservation) Constitutional: limited due to PPE conservation strategy Head, Ears, Nose: limited due to PPE conservation strategy Eyes: limited due to PPE conservation strategy Neck: limited due to PPE conservation strategy Oral: limited due to PPE conservation strategy Cardiovascular: limited due to PPE conservation strategy Respiratory: limited due to PPE conservation strategy GI: limited due to PPE conservation strategy Musculoskeletal: limited due to PPE conservation strategy Skin: limited due to PPE conservation strategy Hem/Lymphatic: limited due to PPE conservation strategy Psych: limited due to PPE conservation strategy Neurological: limited due to PPE conservation strategy - Constitutional Vitals: Vital Signs Temp Pulse Resp BP Pulse Ox 99.9 F H 144 H 24 132/74 93 12/21/19 11:23 12/21/19 11:23 12/21/19 11:23 12/21/19 11:23 12/21/19 11:23 Temperature -Last 24 Hours Temperature 99.9 F Temperature 97.7 F Results - Labs CBC & Chem 7: 12/21/19 10:35 12/21/19 10:35 Labs: Abnormal lab results 12/20/19 12/20/19 12/20/19 Range/Units 20:59 20:59 23:06 WBC 11.4 H (4.5-11.0) K/mm3 MCHC 35 H (32-34) % Lymph % (Auto) 11.9 L (13.4-35.0) % [place] % (Auto) 10.7 H (0.0-7.3) % [place] # 1.2 H (0.0-0.8) K/mm3 Seg Neutrophils % 75.0 H (40.0-70.0) % Seg Neuts % (Manual) (40.0-70.0) % Lymphocytes % (Manual) (13.4-35.0) % Monocytes % (Manual) (0.0-7.3) % Seg Neutrophils # 8.6 H (1.8-7.7) K/mm3 Seg Neutrophils # Man (1.8-7.7) K/mm3 Lymphocytes # (Manual) (1.2-5.4) K/mm3 Monocytes # (Manual) (0.0-0.8) K/mm3 PT 17.0 H (12.2-14.9) Sec. INR 1.36 H (0.87-1.13) APTT (24.2-36.6) Sec. D-Dimer 870.11 H (0-234) ng/mlDDU Heparin Anti-Xa Level (0.3-0.7) U.I./ml Sodium 134 L (137-145) mmol/L Potassium (3.6-5.0) mmol/L Chloride 95.6 L (98-107) mmol/L BUN (9-20) mg/dL Glucose 174 H (75-100) mg/dL POC Glucose (70-105) Ferritin (13.0-400.0) ng/mL Lactate Dehydrogenase (91-180) units/L C-Reactive Protein (0.00-1.30) mg/dL Total Protein 8.7 H (6.3-8.2) g/dL 12/20/19 12/20/19 12/21/19 Range/Units 23:06 23:06 10:35 WBC (4.5-11.0) K/mm3 MCHC (32-34) % Lymph % (Auto) (13.4-35.0) % [place] % (Auto) (0.0-7.3) % [place] # (0.0-0.8) K/mm3 Seg Neutrophils % (40.0-70.0) % Seg Neuts % (Manual) (40.0-70.0) % Lymphocytes % (Manual) (13.4-35.0) % Monocytes % (Manual) (0.0-7.3) % Seg Neutrophils # (1.8-7.7) K/mm3 Seg Neutrophils # Man (1.8-7.7) K/mm3 Lymphocytes # (Manual) (1.2-5.4) K/mm3 Monocytes # (Manual) (0.0-0.8) K/mm3 PT 16.9 H (12.2-14.9) Sec. INR 1.35 H (0.87-1.13) APTT 40.2 H (24.2-36.6) Sec. D-Dimer (0-234) ng/mlDDU Heparin Anti-Xa Level 0.14 L (0.3-0.7) U.I./ml Sodium (137-145) mmol/L Potassium (3.6-5.0) mmol/L Chloride (98-107) mmol/L BUN (9-20) mg/dL Glucose (75-100) mg/dL POC Glucose (70-105) Ferritin 454.6 H (13.0-400.0) ng/mL Lactate Dehydrogenase 193 H (91-180) units/L C-Reactive Protein 42.10 H (0.00-1.30) mg/dL Total Protein (6.3-8.2) g/dL 12/21/19 12/21/19 12/21/19 Range/Units 10:35 10:35 11:33 WBC 21.3 H (4.5-11.0) K/mm3 MCHC (32-34) % Lymph % (Auto) (13.4-35.0) % [place] % (Auto) (0.0-7.3) % [place] # (0.0-0.8) K/mm3 Seg Neutrophils % (40.0-70.0) % Seg Neuts % (Manual) 82.0 H (40.0-70.0) % Lymphocytes % (Manual) 4.0 L (13.4-35.0) % Monocytes % (Manual) 10.0 H (0.0-7.3) % Seg Neutrophils # (1.8-7.7) K/mm3 Seg Neutrophils # Man 17.5 H (1.8-7.7) K/mm3 Lymphocytes # (Manual) 0.9 L (1.2-5.4) K/mm3 Monocytes # (Manual) 2.1 H (0.0-0.8) K/mm3 PT (12.2-14.9) Sec. INR (0.87-1.13) APTT (24.2-36.6) Sec. D-Dimer (0-234) ng/mlDDU Heparin Anti-Xa Level (0.3-0.7) U.I./ml Sodium (137-145) mmol/L Potassium 5.4 H D (3.6-5.0) mmol/L Chloride 93.8 L (98-107) mmol/L BUN 25 H (9-20) mg/dL Glucose 239 H (75-100) mg/dL POC Glucose 223 H (70-105) Ferritin (13.0-400.0) ng/mL Lactate Dehydrogenase (91-180) units/L C-Reactive Protein (0.00-1.30) mg/dL Total Protein (6.3-8.2) g/dL - Imaging and Cardiology CT scan - chest: report reviewed, image reviewed (R nodular infiltrates. Left pleural effusion) Assessment and Plan Cultures: None A/P: 54-year-old male with hypertension, diabetes, obesity who came into the emergency room with complaints of left-sided chest pain #Left pleural effusion #Right lung multiple nodular infiltrates #Leucocytosis Recs: Agree with COVID-19 rule out however low suspicion Given left-sided pleural effusion as well as right-sided nodular infiltrates, concern for possible malignancy. Consider pulmonary consult We will order fungal work-up: Cryptococcus antigen, histoplasma urinary antigen, Aspergillus galactomannan and 1 3 beta D glucan HIV also ordered Okay to continue ceftriaxone for now No need for Plaquenil at this time Anival Teresa MD, FACP [facility] C: [phone] O: [phone] F: [phone]
[2019-12-21] MEDS: ACETAMINOPHEN 325 MG TAB PO PRN ×2 (16:14→22:52)
[2019-12-21] MEDS: dilTIAZem 60 MG TAB PO SCH ×2 (17:24→22:16)
[2019-12-21] MEDS: cefTRIAXone/NS 2 GM/100 ML 2 GM/100 ML BAG IV SCH (22:15)
[2019-12-21] MEDS: APIXABAN 5 MG TAB PO SCH (22:16)
[2019-12-21] MEDS: oxyCODONE /ACETAMINOPHEN 5-325MG TAB PO PRN (22:16)
[2019-12-21] MEDS: INSULIN REGULAR, HUMAN 100 UNITS/1 ML SUB-Q SCH (22:17)
[2019-12-22] MEDS: dilTIAZem 60 MG TAB PO SCH ×5 (00:21→23:39)
[2019-12-22 06:18] LABS: Hematocrit 41.6 % (35.5-45.6); Mean Corpuscular HGB Conc 34 % (32-34); Mean Corpuscular Volume 88 fl (84-94); Platelet Count 237 K/mm3 (140-440); Red Blood Count 4.71 M/mm3 (3.65-5.03); Red Cell Distribution Width 14.1 % (13.2-15.2)
[2019-12-22 06:39] LABS: Calcium 9.6 mg/dL (8.4-10.2)
[2019-12-22 07:14] LABS: Basophils % (Manual) 0 % (0.0-1.8); Total Cells Counted 100
[2019-12-22 07:15] LABS: Anisocytosis 1+; Platelet Estimate Consistent w Auto
[2019-12-22] MEDS: INSULIN REGULAR, HUMAN 100 UNITS/1 ML SUB-Q SCH ×5 (08:23→22:14)
[2019-12-22] MEDS: oxyCODONE /ACETAMINOPHEN 5-325MG TAB PO PRN ×3 (09:00→22:55)
[2019-12-22] MEDS: APIXABAN 5 MG TAB PO SCH ×2 (09:00→22:13)
[2019-12-22] MEDS: FUROSEMIDE 20 MG/2 ML INJ IV SCH (09:00)
--- NOTE | 2019-12-22 09:15 | Progress Note ---
Assessment and Plan Assessment and plan: COVID-19 suspected - Etiology sought in this pt with moderate left pleural effusion, bilateral infiltrates on CXR and slightly positive serum inflammatory markers that are suggestive of Covid 19. -Continue Rocephin IV and Hydrochloroquine - Droplet and contact isolations ordered - continue telemonitoring Bilateral pneumonia. Continue antibiotics as above Sepsis. Continue antibiotics and follow-up blood cultures. Left Pleural effusion - etiology likely parapneumonic -Follow-up echocardiogram - continue Oxygen support - IV lasix per cardiology recommendation Acute hypoxemic respiratory failure. Etiology secondary to above. Continue O2 for supportive care Afib with RVR Cardizem p.o. HTN - essential and longstanding - LVH present on ECG. - control BP effectively DM - Accuchecks - monitor full code. 12/22/2019. Patient changed from Cardizem drip to Cardizem p.o. Continue Eliquis. Heparin drip discontinued. Thyroid profile normal. Patient reportedly had 2 episodes of V. tach each less than 10 beat run. Follow-up echocardiogram. COVID-19 test is negative. The patient will be transferred to the telemetry floor. Continue Plaquenil. Cardiology and ID following. History Interval history: No new issues overnight. COVID19: Pending Hospitalist Physical - Constitutional Vitals: Temp Pulse Resp BP Pulse Ox 99.0 F 82 20 141/75 94 12/22/19 05:18 12/22/19 05:18 12/22/19 05:18 12/22/19 05:18 12/22/19 05:18 General appearance: Present: no acute distress - EENT Eyes: Present: PERRL, EOM intact ENT: hearing intact, clear oral mucosa, dentition normal - Neck Neck: Present: supple, normal ROM - Respiratory Respiratory effort: normal Respiratory: bilateral: CTA - Cardiovascular Rhythm: regular Heart Sounds: Present: S1 & S2. Absent: gallop, rub - Extremities Extremities: no ischemia, No edema, Full ROM - Abdominal General gastrointestinal: soft, non-tender, non-distended, normal bowel sounds - Integumentary Integumentary: Present: clear, warm, dry - Neurologic Neurologic: CNII-XII intact, moves all extremities Results - Labs CBC & Chem 7: 12/22/19 04:53 12/22/19 04:53 Labs: Laboratory Last Values WBC 20.8 K/mm3 (4.5-11.0) H 12/22/19 04:53 RBC 4.71 M/mm3 (3.65-5.03) 12/22/19 04:53 Hgb 14.0 gm/dl (11.8-15.2) 12/22/19 04:53 Hct 41.6 % (35.5-45.6) 12/22/19 04:53 MCV 88 fl (84-94) 12/22/19 04:53 MCH 30 pg (28-32) 12/22/19 04:53 MCHC 34 % (32-34) 12/22/19 04:53 RDW 14.1 % (13.2-15.2) 12/22/19 04:53 Plt Count 237 K/mm3 (140-440) 12/22/19 04:53 Lymph % (Auto) 11.9 % (13.4-35.0) L 12/20/19 20:59 [place] % (Auto) 10.7 % (0.0-7.3) H 12/20/19 20:59 Eos % (Auto) 1.9 % (0.0-4.3) 12/20/19 20:59 Baso % (Auto) 0.5 % (0.0-1.8) 12/20/19 20:59 Lymph # 1.4 K/mm3 (1.2-5.4) 12/20/19 20:59 [place] # 1.2 K/mm3 (0.0-0.8) H 12/20/19 20:59 Eos # 0.2 K/mm3 (0.0-0.4) 12/20/19 20:59 Baso # 0.1 K/mm3 (0.0-0.1) 12/20/19 20:59 Add Manual Diff Complete 12/22/19 04:53 Total Counted 100 12/22/19 04:53 Seg Neutrophils % 75.0 % (40.0-70.0) H 12/20/19 20:59 Seg Neuts % (Manual) 84.0 % (40.0-70.0) H 12/22/19 04:53 Band Neutrophils % 0 % 12/22/19 04:53 Lymphocytes % (Manual) 6.0 % (13.4-35.0) L 12/22/19 04:53 Reactive Lymphs % (Man) 0 % 12/22/19 04:53 Monocytes % (Manual) 9.0 % (0.0-7.3) H 12/22/19 04:53 Eosinophils % (Manual) 1.0 % (0.0-4.3) 12/22/19 04:53 Basophils % (Manual) 0 % (0.0-1.8) 12/22/19 04:53 Metamyelocytes % 0 % 12/22/19 04:53 Myelocytes % 0 % 12/22/19 04:53 Promyelocytes % 0 % 12/22/19 04:53 Blast Cells % 0 % 12/22/19 04:53 Nucleated RBC % Not Reportable 12/22/19 04:53 Seg Neutrophils # 8.6 K/mm3 (1.8-7.7) H 12/20/19 20:59 Seg Neutrophils # Man 17.5 K/mm3 (1.8-7.7) H 12/22/19 04:53 Band Neutrophils # 0.0 K/mm3 12/22/19 04:53 Lymphocytes # (Manual) 1.2 K/mm3 (1.2-5.4) 12/22/19 04:53 Abs React Lymphs (Man) 0.0 K/mm3 12/22/19 04:53 Monocytes # (Manual) 1.9 K/mm3 (0.0-0.8) H 12/22/19 04:53 Eosinophils # (Manual) 0.2 K/mm3 (0.0-0.4) 12/22/19 04:53 Basophils # (Manual) 0.0 K/mm3 (0.0-0.1) 12/22/19 04:53 Metamyelocytes # 0.0 K/mm3 12/22/19 04:53 Myelocytes # 0.0 K/mm3 12/22/19 04:53 Promyelocytes # 0.0 K/mm3 12/22/19 04:53 Blast Cells # 0.0 K/mm3 12/22/19 04:53 WBC Morphology Not Reportable 12/22/19 04:53 Hypersegmented Neuts Not Reportable 12/22/19 04:53 Hyposegmented Neuts Not Reportable 12/22/19 04:53 Hypogranular Neuts Not Reportable 12/22/19 04:53 Smudge Cells Not Reportable 12/22/19 04:53 Toxic Granulation Not Reportable 12/22/19 04:53 Toxic Vacuolation Not Reportable 12/22/19 04:53 Dohle Bodies Not Reportable 12/22/19 04:53 Pelger-Huet Anomaly Not Reportable 12/22/19 04:53 Kelly Rods Not Reportable 12/22/19 04:53 Platelet Estimate Consistent w auto 12/22/19 04:53 Clumped Platelets Not Reportable 12/22/19 04:53 Plt Clumps, EDTA Not Reportable 12/22/19 04:53 Large Platelets Not Reportable 12/22/19 04:53 Giant Platelets Not Reportable 12/22/19 04:53 Platelet Satelliting Not Reportable 12/22/19 04:53 Plt Morphology Comment Not Reportable 12/22/19 04:53 RBC Morphology Not Reportable 12/22/19 04:53 Dimorphic RBCs Not Reportable 12/22/19 04:53 Polychromasia Not Reportable 12/22/19 04:53 Hypochromasia Not Reportable 12/22/19 04:53 Poikilocytosis Not Reportable 12/22/19 04:53 Anisocytosis 1+ 12/22/19 04:53 Microcytosis Not Reportable 12/22/19 04:53 Macrocytosis Not Reportable 12/22/19 04:53 Spherocytes Not Reportable 12/22/19 04:53 Pappenheimer Bodies Not Reportable 12/22/19 04:53 Sickle Cells Not Reportable 12/22/19 04:53 Target Cells Not Reportable 12/22/19 04:53 Tear Drop Cells Not Reportable 12/22/19 04:53 Ovalocytes Not Reportable 12/22/19 04:53 Helmet Cells Not Reportable 12/22/19 04:53 [place] Bodies Not Reportable 12/22/19 04:53 [place] Rings Not Reportable 12/22/19 04:53 Naeem Cells Not Reportable 12/22/19 04:53 Bite Cells Not Reportable 12/22/19 04:53 Crenated Cell Not Reportable 12/22/19 04:53 Elliptocytes Not Reportable 12/22/19 04:53 Acanthocytes (Spur) Not Reportable 12/22/19 04:53 Rouleaux Not Reportable 12/22/19 04:53 Hemoglobin C Crystals Not Reportable 12/22/19 04:53 Schistocytes Not Reportable 12/22/19 04:53 Malaria parasites Not Reportable 12/22/19 04:53 Jay Bodies Not Reportable 12/22/19 04:53 Hem Pathologist Commnt No 12/22/19 04:53 PT 16.9 Sec. (12.2-14.9) H 12/21/19 10:35 INR 1.35 (0.87-1.13) H 12/21/19 10:35 APTT 40.2 Sec. (24.2-36.6) H 12/21/19 10:35 D-Dimer 870.11 ng/mlDDU (0-234) H 12/20/19 23:06 Heparin Anti-Xa Level 0.10 U.I./ml (0.3-0.7) L 12/21/19 16:31 Sodium 135 mmol/L (137-145) L 12/22/19 04:53 Potassium 4.7 mmol/L (3.6-5.0) 12/22/19 04:53 Chloride 92.3 mmol/L (98-107) L 12/22/19 04:53 Carbon Dioxide 23 mmol/L (22-30) 12/22/19 04:53 Anion Gap 24 mmol/L 12/22/19 04:53 BUN 33 mg/dL (9-20) H 12/22/19 04:53 Creatinine 1.7 mg/dL (0.8-1.5) H 12/22/19 04:53 Estimated GFR 51 ml/min 12/22/19 04:53 BUN/Creatinine Ratio 19 % 12/22/19 04:53 Glucose 175 mg/dL (75-100) H 12/22/19 04:53 POC Glucose 175 (70-105) H 12/22/19 07:46 Calcium 9.6 mg/dL (8.4-10.2) 12/22/19 04:53 Magnesium 2.60 mg/dL (1.7-2.3) H 12/21/19 10:39 Ferritin 454.6 ng/mL (13.0-400.0) H 12/20/19 23:06 Total Bilirubin 0.50 mg/dL (0.1-1.2) 12/20/19 20:59 AST 16 units/L (5-40) 12/20/19 20:59 ALT 18 units/L (7-56) 12/20/19 20:59 Alkaline Phosphatase 66 units/L (35-129) 12/20/19 20:59 Lactate Dehydrogenase 193 units/L (91-180) H 12/20/19 23:06 Troponin T < 0.010 ng/mL (0.00-0.029) 12/21/19 10:35 C-Reactive Protein 42.10 mg/dL (0.00-1.30) H 12/20/19 23:06 NT-Pro-B Natriuret Pep 134.4 pg/mL (0-900) 12/20/19 23:06 Total Protein 8.7 g/dL (6.3-8.2) H 12/20/19 20:59 Albumin 3.9 g/dL (3.9-5) 12/20/19 20:59 Albumin/Globulin Ratio 0.8 % 12/20/19 20:59 Lipase 21 units/L (13-60) 12/20/19 20:59 Procalcitonin 0.61 ng/mL (<0.15) 12/20/19 23:06 TSH 2.040 mlU/mL (0.270-4.200) 12/21/19 16:31 Free T4 1.13 ng/dL (0.76-1.46) 12/21/19 16:31 Cuevas/IV: Voiding Method Urinal IV Catheter Type [Right Wrist] INT / Saline Lock IV Catheter Type [Left INT / Saline Lock Antecubital] IV Catheter Type [Left Hand] INT / Saline Lock Active Medications - Current Medications Current Medications: Generic Name Dose Route Start Last Admin Trade Name Freq PRN Reason Stop Dose Admin Acetaminophen 650 mg 12/21/19 04:30 12/21/19 22:52 Tylenol PO 650 mg Q4H PRN Administration Pain MILD(1-3)/Fever >100.5/NOLASCO Apixaban 5 mg 12/21/19 22:00 12/22/19 09:00 Eliquis PO 5 mg Q12HR YVETTE Administration Protocol Diltiazem HCl 60 mg 12/21/19 18:00 12/22/19 05:50 Cardizem PO 60 mg Q6HR YVETTE Administration Furosemide 20 mg 12/21/19 10:00 12/22/19 09:00 Lasix IV 20 mg QDAY YVETTE Administration Ceftriaxone Sodium 2 gm in 100 mls @ 200 mls/hr 12/21/19 22:00 12/21/19 22:15 Rocephin/Ns 2 Gm/100 Ml IV 12/27/19 23:59 200 mls/hr QHS YVETTE Administration Insulin Human Regular 0 units 12/21/19 22:00 12/22/19 08:23 Humulin R SUB-Q 2 units ACHS YVTETE Administration Protocol Morphine Sulfate 2 mg 12/21/19 04:30 12/21/19 17:26 Morphine IV 2 mg Q4H PRN Administration Pain, Moderate (4-6) Naloxone HCl 0.1 mg 12/21/19 04:30 Naloxone IV Q2MIN PRN Res Rate </= 8 or 02 SAT < 92% Ondansetron HCl 4 mg 12/21/19 04:30 Zofran IV Q8H PRN Nausea And Vomiting Oxycodone/Acetaminophen 1 tab 12/21/19 04:30 12/22/19 09:00 Percocet 5/325 PO 1 tab Q6H PRN Administration Pain, Moderate (4-6) Sodium Chloride 10 ml 12/21/19 10:00 12/22/19 09:00 Sodium Chloride Flush Syringe 10 Ml IV 10 ml BID YVETTE Administration Sodium Chloride 10 ml 12/21/19 04:30 Sodium Chloride Flush Syringe 10 Ml IV PRN PRN LINE FLUSH Nutrition/Malnutrition Assess - Dietary Evaluation Nutrition/Malnutrition Findings: Nutrition Notes Start: 12/21/19 11:30 Freq: Status: Active Protocol: Document 12/21/19 11:37 LP (Rec: 12/21/19 11:46 LP [id number]) Nutrition Notes Need for 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 Pt did not answer phone. Nutrition Intervention Follow-Up By: 12/22/19 Additional Comments Follow for assessment
--- NOTE | 2019-12-22 10:13 | Progress Note ---
Assessment and Plan Pt is COVID-19 negative. Pt remains in NSR. Cont PO cardizem and Eliquis. Obtain echo. Pt may tx to telemetry as he is COVID negative. The patient has been seen in conjunction with Dr. Roa who agrees with the assessment and plan of care. - Patient Problems (1) Atrial fibrillation with rapid ventricular response Current Visit: Yes Status: Acute (2) Pleural effusion Current Visit: Yes Status: Acute (3) Suspected 2019 novel coronavirus infection Current Visit: Yes Status: Acute (4) HTN (hypertension) Current Visit: Yes Status: Chronic (5) Diabetes Current Visit: Yes Status: Chronic Subjective Date of service: 12/22/19 Principal diagnosis: AFib Interval history: no current complaints. in SR on telemetry. COVID19: Negative Objective Last Vital Signs Temp 99.0 F 12/22/19 05:18 Pulse 82 12/22/19 05:18 Resp 20 12/22/19 05:18 BP 141/75 12/22/19 05:18 Pulse Ox 94 12/22/19 05:18 - Physical Examination General: No Apparent Distress HEENT: Positive: PERRL, Normocephaly, Mucus Membranes Moist Neck: Positive: neck supple, trachea midline Cardiac: Positive: Reg Rate and Rhythm, S1/S2 Lungs: Positive: Decreased Breath Sounds Neuro: Positive: Grossly Intact Abdomen: Negative: Tender Skin: Negative: Rash Musculoskeletal: No Pain Extremities: Absent: edema - Labs and Meds Coagulation 12/21/19 Range/Units 10:35 PT 16.9 H (12.2-14.9) Sec. INR 1.35 H (0.87-1.13) APTT 40.2 H (24.2-36.6) Sec. CBC 12/21/19 12/22/19 Range/Units 10:35 04:53 WBC 21.3 H 20.8 H (4.5-11.0) K/mm3 RBC 4.97 4.71 (3.65-5.03) M/mm3 Hgb 14.6 14.0 (11.8-15.2) gm/dl Hct 44.2 41.6 (35.5-45.6) % Plt Count 240 237 (140-440) K/mm3 Comprehensive Metabolic Panel 12/21/19 12/22/19 Range/Units 10:35 04:53 Sodium 137 135 L (137-145) mmol/L Potassium 5.4 H D 4.7 (3.6-5.0) mmol/L Chloride 93.8 L 92.3 L (98-107) mmol/L Carbon Dioxide 23 23 (22-30) mmol/L BUN 25 H 33 H (9-20) mg/dL Creatinine 1.5 1.7 H (0.8-1.5) mg/dL Glucose 239 H 175 H (75-100) mg/dL Calcium 9.3 9.6 (8.4-10.2) mg/dL - Imaging and Cardiology EKG: report reviewed, image reviewed
--- NOTE | 2019-12-22 14:26 | Progress Note ---
Assessment and Plan Cultures/Microbiology: COVID-19: negative A/P: 54-year-old male with hypertension, diabetes, obesity who came into the emergency room with complaints of left-sided chest pain #Left pleural effusion: COVID negative. #Right lung multiple nodules. #Leucocytosis Recs: COVID-19 is negative, overall suspicion was anyways low. D/C isolation Continue IV Ceftriaxone, added IV Vancomycin, renally dosed Given left-sided pleural effusion as well as right-sided nodular infiltrates, concern for possible malignancy. Consider pulmonary consult f/u pending fungal work-up: Cryptococcus antigen, histoplasma urinary antigen, Aspergillus galactomannan and 1 3 beta D glucan HIV re-ordered (verbal consent obtained from patient) Autoimmune work up: PACO, C3, C4, ANCA Anival Teresa MD, FACP [facility] ([facility] C: [phone] O: [phone] F: [phone] Subjective Date of service: 12/22/19 Principal diagnosis: AFib Interval history: Low grade fever yesterday. None today. Feels slightly better. Still SOB +. COVID19: Pending Objective - Exam Narrative Exam: Physical Exam: Constitutional: Alert, cooperative. No acute distress. Obese Head, Ears, Nose: Normocephalic, atraumatic. External ears, nose normal Eyes: Conjunctivae/corneas clear. No icterus. No ptosis. Neck: Supple, no meningeal signs Cardiovascular: S1, S2 normal. Respiratory: AE decreased on left side. GI: Soft, non-tender; bowel sounds normal. No peritoneal signs Musculoskeletal: No pedal edema, no cyanosis. Skin: No rash or abscess Hem/Lymphatic: No palpable cervical or supraclavicular nodes. No lymphangitis Psych: Mood ok. Affect normal Neurological: Awake, alert, oriented. No gross abnormality - Constitutional Vitals: Vital Signs Temp Pulse Resp BP Pulse Ox 98.6 F 127 H 20 155/74 97 12/22/19 11:22 12/22/19 12:44 12/22/19 12:12 12/22/19 12:44 12/22/19 12:12 Temperature -Last 24 Hours Temperature 98.6 F Temperature 99.0 F Temperature 100.3 F Temperature 100.0 F - Labs CBC & Chem 7: 12/22/19 04:53 12/22/19 04:53 Labs: Abnormal lab results 12/21/19 12/21/19 12/21/19 Range/Units 10:39 16:19 16:31 WBC (4.5-11.0) K/mm3 Seg Neuts % (Manual) (40.0-70.0) % Lymphocytes % (Manual) (13.4-35.0) % Monocytes % (Manual) (0.0-7.3) % Seg Neutrophils # Man (1.8-7.7) K/mm3 Monocytes # (Manual) (0.0-0.8) K/mm3 Heparin Anti-Xa Level 0.10 L (0.3-0.7) U.I./ml Sodium (137-145) mmol/L Chloride (98-107) mmol/L BUN (9-20) mg/dL Creatinine (0.8-1.5) mg/dL Glucose (75-100) mg/dL POC Glucose 212 H (70-105) Magnesium 2.60 H (1.7-2.3) mg/dL 12/21/19 12/22/19 12/22/19 Range/Units 22:03 04:53 04:53 WBC 20.8 H (4.5-11.0) K/mm3 Seg Neuts % (Manual) 84.0 H (40.0-70.0) % Lymphocytes % (Manual) 6.0 L (13.4-35.0) % Monocytes % (Manual) 9.0 H (0.0-7.3) % Seg Neutrophils # Man 17.5 H (1.8-7.7) K/mm3 Monocytes # (Manual) 1.9 H (0.0-0.8) K/mm3 Heparin Anti-Xa Level (0.3-0.7) U.I./ml Sodium 135 L (137-145) mmol/L Chloride 92.3 L (98-107) mmol/L BUN 33 H (9-20) mg/dL Creatinine 1.7 H (0.8-1.5) mg/dL Glucose 175 H (75-100) mg/dL POC Glucose 188 H (70-105) Magnesium (1.7-2.3) mg/dL 04/15/20 04/15/20 Range/Units 07:46 11:33 WBC (4.5-11.0) K/mm3 Seg Neuts % (Manual) (40.0-70.0) % Lymphocytes % (Manual) (13.4-35.0) % Monocytes % (Manual) (0.0-7.3) % Seg Neutrophils # Man (1.8-7.7) K/mm3 Monocytes # (Manual) (0.0-0.8) K/mm3 Heparin Anti-Xa Level (0.3-0.7) U.I./ml Sodium (137-145) mmol/L Chloride (98-107) mmol/L BUN (9-20) mg/dL Creatinine (0.8-1.5) mg/dL Glucose (75-100) mg/dL POC Glucose 175 H 186 H (70-105) Magnesium (1.7-2.3) mg/dL
[2019-12-22] MEDS ORDERED: VANCOMYCIN PHARMACY TO DOSE IV SCH (15:00)
[2019-12-22] MEDS ORDERED: VANCOMYCIN 2,000 MG in SODIUM CHLORIDE 0.9% 500 ML 500 ML IV ONE (15:00)
[2019-12-22] MEDS: cefTRIAXone/NS 2 GM/100 ML 2 GM/100 ML BAG IV SCH (22:13)
[2019-12-22] MEDS ORDERED: VANCOMYCIN 2,000 MG in SODIUM CHLORIDE 0.9% 500 ML 500 ML IV SCH (23:00)
[2019-12-22] MEDS: ACETAMINOPHEN 325 MG TAB PO PRN (23:40)
[2019-12-23] MEDS: dilTIAZem 60 MG TAB PO SCH (05:58)
[2019-12-23] MEDS: ACETAMINOPHEN 325 MG TAB PO PRN (10:10)
[2019-12-23] MEDS: APIXABAN 5 MG TAB PO SCH ×2 (10:10→21:46)
[2019-12-23] MEDS: INSULIN REGULAR, HUMAN 100 UNITS/1 ML SUB-Q SCH ×4 (10:13→21:47)
[2019-12-23] MEDS: FUROSEMIDE 20 MG/2 ML INJ IV SCH (10:13)
[2019-12-23] MEDS: METOPROLOL TARTRATE 100 MG TAB PO SCH ×2 (10:22→21:45)
--- NOTE | 2019-12-23 10:25 | Consultation ---
History of Present Illness Consult date: 12/23/19 Requesting physician: KIM SIMMS Reason for consult: abnormal CXR/CT History of present illness: 54 y/o male admitted with shortness of breath and afib with RVR. CXR and CT scan reveal left sided effusion with atelectasis. CT scan shows right upper lobe nodules, noncalcified. Given negative COVID state, ID requested pulmonary to be consulted in regards to this patient. Past History Past Medical History: diabetes, hypertension Social history: IV drug use, full code. denies: smoking, alcohol abuse, prescription drug abuse Family history: diabetes Medications and Allergies Allergies Allergy/AdvReac Type Severity Reaction Status Date / Time No Known Allergies Allergy Verified 12/20/19 23:59 Home Medications Medication Instructions Recorded Confirmed Last Taken Type No Known Home Medications [No 12/21/19 12/21/19 Unknown History Reported Home Medications] Active Meds: Active Medications Acetaminophen (Tylenol) 650 mg PO Q4H PRN PRN Reason: Pain MILD(1-3)/Fever >100.5/NOLASCO Last Admin: 12/23/19 10:10 Dose: 650 mg Documented by: Apixaban (Eliquis) 5 mg PO Q12HR [facility]; Protocol Last Admin: 12/23/19 10:10 Dose: 5 mg Documented by: Furosemide (Lasix) 20 mg IV QDAY [facility] Last Admin: 12/23/19 10:13 Dose: 20 mg Documented by: Ceftriaxone Sodium (Rocephin/Ns 2 Gm/100 Ml) 2 gm in 100 mls @ 200 mls/hr IV QHS [facility] Last Admin: 12/22/19 22:13 Dose: 200 mls/hr Documented by: Vancomycin HCl 2,000 mg/ (Sodium Chloride) 540 mls @ 250 mls/hr IV Q24HR@1600 [facility]VETTE Insulin Human Regular (Humulin R) 0 units SUB-Q ACHS [facility]; Protocol Last Admin: 12/23/19 10:13 Dose: 2 units Documented by: Metoprolol Tartrate (Metoprolol) 100 mg PO BID [facility] Morphine Sulfate (Morphine) 2 mg IV Q4H PRN PRN Reason: Pain, Moderate (4-6) Last Admin: 12/21/19 17:26 Dose: 2 mg Documented by: Naloxone HCl (Naloxone) 0.1 mg IV Q2MIN PRN PRN Reason: Res Rate </= 8 or 02 SAT < 92% Ondansetron HCl (Zofran) 4 mg IV Q8H PRN PRN Reason: Nausea And Vomiting Oxycodone/Acetaminophen (Percocet 5/325) 1 tab PO Q6H PRN PRN Reason: Pain, Moderate (4-6) Last Admin: 12/22/19 22:55 Dose: 1 tab Documented by: Sodium Chloride (Sodium Chloride Flush Syringe 10 Ml) 10 ml IV BID YVETTE Last Admin: 12/23/19 10:13 Dose: 10 ml Documented by: Sodium Chloride (Sodium Chloride Flush Syringe 10 Ml) 10 ml IV PRN PRN PRN Reason: LINE FLUSH Physical Examination Vital signs: Vital Signs Temp Pulse Resp BP Pulse Ox 97.7 F 92 H 18 151/83 93 12/20/19 20:48 12/20/19 20:48 12/20/19 20:48 12/20/19 20:48 12/20/19 20:48 Results - Laboratory Findings CBC and BMP: 12/22/19 04:53 12/22/19 04:53 PT/INR, D-dimer PT 16.9 Sec. (12.2-14.9) H 12/21/19 10:35 INR 1.35 (0.87-1.13) H 12/21/19 10:35 D-Dimer 870.11 ng/mlDDU (0-234) H 12/20/19 23:06 Abnormal lab findings: Abnormal Labs 12/20/19 12/20/19 12/20/19 20:59 20:59 23:06 WBC 11.4 H MCHC 35 H Lymph % (Auto) 11.9 L [place] % (Auto) 10.7 H [place] # 1.2 H Seg Neutrophils % 75.0 H Seg Neuts % (Manual) Lymphocytes % (Manual) Monocytes % (Manual) Seg Neutrophils # 8.6 H Seg Neutrophils # Man Lymphocytes # (Manual) Monocytes # (Manual) PT 17.0 H INR 1.36 H APTT D-Dimer 870.11 H Heparin Anti-Xa Level Sodium 134 L Potassium Chloride 95.6 L BUN Creatinine Glucose 174 H POC Glucose Magnesium Ferritin Lactate Dehydrogenase C-Reactive Protein Total Protein 8.7 H 12/20/19 12/20/19 12/21/19 23:06 23:06 10:35 WBC MCHC Lymph % (Auto) [place] % (Auto) [place] # Seg Neutrophils % Seg Neuts % (Manual) Lymphocytes % (Manual) Monocytes % (Manual) Seg Neutrophils # Seg Neutrophils # Man Lymphocytes # (Manual) Monocytes # (Manual) PT 16.9 H INR 1.35 H APTT 40.2 H D-Dimer Heparin Anti-Xa Level 0.14 L Sodium Potassium Chloride BUN Creatinine Glucose POC Glucose Magnesium Ferritin 454.6 H Lactate Dehydrogenase 193 H C-Reactive Protein 42.10 H Total Protein 12/21/19 12/21/19 12/21/19 10:35 10:35 10:39 WBC 21.3 H MCHC Lymph % (Auto) [place] % (Auto) [place] # Seg Neutrophils % Seg Neuts % (Manual) 82.0 H Lymphocytes % (Manual) 4.0 L Monocytes % (Manual) 10.0 H Seg Neutrophils # Seg Neutrophils # Man 17.5 H Lymphocytes # (Manual) 0.9 L Monocytes # (Manual) 2.1 H PT INR APTT D-Dimer Heparin Anti-Xa Level Sodium Potassium 5.4 H D Chloride 93.8 L BUN 25 H Creatinine Glucose 239 H POC Glucose Magnesium 2.60 H Ferritin Lactate Dehydrogenase C-Reactive Protein Total Protein 12/21/19 12/21/19 12/21/19 11:33 16:19 16:31 WBC MCHC Lymph % (Auto) [place] % (Auto) [place] # Seg Neutrophils % Seg Neuts % (Manual) Lymphocytes % (Manual) Monocytes % (Manual) Seg Neutrophils # Seg Neutrophils # Man Lymphocytes # (Manual) Monocytes # (Manual) PT INR APTT D-Dimer Heparin Anti-Xa Level 0.10 L Sodium Potassium Chloride BUN Creatinine Glucose POC Glucose 223 H 212 H Magnesium Ferritin Lactate Dehydrogenase C-Reactive Protein Total Protein 12/21/19 12/22/19 12/22/19 22:03 04:53 04:53 WBC 20.8 H MCHC Lymph % (Auto) [place] % (Auto) [place] # Seg Neutrophils % Seg Neuts % (Manual) 84.0 H Lymphocytes % (Manual) 6.0 L Monocytes % (Manual) 9.0 H Seg Neutrophils # Seg Neutrophils # Man 17.5 H Lymphocytes # (Manual) Monocytes # (Manual) 1.9 H PT INR APTT D-Dimer Heparin Anti-Xa Level Sodium 135 L Potassium Chloride 92.3 L BUN 33 H Creatinine 1.7 H Glucose 175 H POC Glucose 188 H Magnesium Ferritin Lactate Dehydrogenase C-Reactive Protein Total Protein 12/22/19 12/22/19 12/22/19 07:46 11:33 17:11 WBC MCHC Lymph % (Auto) [place] % (Auto) [place] # Seg Neutrophils % Seg Neuts % (Manual) Lymphocytes % (Manual) Monocytes % (Manual) Seg Neutrophils # Seg Neutrophils # Man Lymphocytes # (Manual) Monocytes # (Manual) PT INR APTT D-Dimer Heparin Anti-Xa Level Sodium Potassium Chloride BUN Creatinine Glucose POC Glucose 175 H 186 H 218 H Magnesium Ferritin Lactate Dehydrogenase C-Reactive Protein Total Protein 12/22/19 12/23/19 20:39 08:46 WBC MCHC Lymph % (Auto) [place] % (Auto) [place] # Seg Neutrophils % Seg Neuts % (Manual) Lymphocytes % (Manual) Monocytes % (Manual) Seg Neutrophils # Seg Neutrophils # Man Lymphocytes # (Manual) Monocytes # (Manual) PT INR APTT D-Dimer Heparin Anti-Xa Level Sodium Potassium Chloride BUN Creatinine Glucose POC Glucose 187 H 197 H Magnesium Ferritin Lactate Dehydrogenase C-Reactive Protein Total Protein Assessment and Plan 54 y/o with left sided pleural effusion and multiple nodules in right upper lobe of lung 1. Ordered US guided thoracentesis with cytology, cultures including afb and fungal and cell count with protein LDH and glucose 2. Pending results of this, may likely need outpatient PET. 3. Lesions were not measured in this report, not sure if they are amenable to CT guided biopsy but can ask radiology. 4. Consider CT of ABdomen and Pelvis as well. Will continue to follow.
--- NOTE | 2019-12-23 11:29 | Progress Note ---
Assessment and Plan Echo reviewed - EF 30-35%; mild LVH; trace MR; trace TR. Pt in AF 90-100s on tele. Switch PO Cardizem to PO Lopressor 100mg BID. Initiate IV Digoxin 0.25mg q6h x 4 doses. Continue Eliquis. Continue tele monitoring. Pt seen in conjunction with Dr. Roa, who agrees with the assessment and plan of care. - Patient Problems (1) Atrial fibrillation with rapid ventricular response Current Visit: Yes Status: Acute (2) Cardiomyopathy Current Visit: Yes Status: Acute (3) Pneumonia Current Visit: Yes Status: Acute Qualifiers: Laterality: bilateral (4) Pleural effusion Current Visit: Yes Status: Acute Plan to address problem: left (5) HTN (hypertension) Current Visit: Yes Status: Chronic Qualifiers: Hypertension type: essential hypertension Qualified Code(s): I10 - Essential (primary) hypertension (6) Diabetes Current Visit: Yes Status: Chronic Qualifiers: Diabetes mellitus type: type 2 Subjective Date of service: 12/23/19 Principal diagnosis: AFib Interval history: Pt sitting up in bed comfortably. He reports improved SOB and denies any current cardiac complaints. Tele reviewed - pt in AF 90-100s. COVID19: Negative Objective Last Vital Signs Temp 100.0 F H 12/23/19 08:36 Pulse 95 H 12/23/19 10:22 Resp 18 12/23/19 08:36 BP 146/79 12/23/19 10:22 Pulse Ox 93 12/23/19 08:36 - Physical Examination General: No Apparent Distress HEENT: Positive: EOMI, Normocephaly, Mucus Membranes Moist Neck: Positive: neck supple, trachea midline Cardiac: Positive: irregularly irregular, S1/S2 Lungs: Positive: Normal Breath Sounds (bilaterally) Neuro: Positive: Grossly Intact, Motor Function Intact, Coordination Normal, Sensory Function Intact. Negative: Numbness, Weakness Abdomen: Positive: Soft, Active Bowel Sounds. Negative: Tender Skin: Negative: Rash, Suspicious Lesions Musculoskeletal: No Pain Extremities: Present: upper extr. pulses, lower extr. pulses. Absent: edema - Imaging and Cardiology EKG: report reviewed, image reviewed Echo: report reviewed (EF 30-35%; mild LVH; trace MR; trace TR) - Telemetry EKG Rhythm: Atrial Fibrillation
[2019-12-23] MEDS: oxyCODONE /ACETAMINOPHEN 5-325MG TAB PO PRN (11:44)
[2019-12-23] MEDS ORDERED: DIGOXIN 0.5 MG/2 ML INJ IV SCH (12:00)
--- NOTE | 2019-12-23 13:37 | Progress Note ---
Assessment and Plan Assessment and plan: COVID-19 suspected - Etiology sought in this pt with moderate left pleural effusion, bilateral infiltrates on CXR and slightly positive serum inflammatory markers that are suggestive of Covid 19. -Continue Rocephin IV and Hydrochloroquine - Droplet and contact isolations ordered - continue telemonitoring Bilateral pneumonia. Continue antibiotics as above Sepsis. Continue antibiotics and follow-up blood cultures. Left Pleural effusion - etiology likely parapneumonic -Follow-up echocardiogram - continue Oxygen support - IV lasix per cardiology recommendation Acute hypoxemic respiratory failure. Etiology secondary to above. Continue O2 for supportive care Afib with RVR Cardizem p.o. HTN - essential and longstanding - LVH present on ECG. - control BP effectively DM - Accuchecks - monitor full code. 12/22/2019. Patient changed from Cardizem drip to Cardizem p.o. Continue Eliquis. Heparin drip discontinued. Thyroid profile normal. Patient reportedly had 2 episodes of V. tach each less than 10 beat run. Follow-up echocardiogram. COVID-19 test is negative. The patient will be transferred to the telemetry floor. Continue Plaquenil. Cardiology and ID following. 12/23/2019. Echocardiogram completed and revealed EF 30-35%; mild LVH; trace MR; trace TR. patient remains in A. fib but rate controlled. Cardiology switched PO Cardizem to PO Lopressor 100mg BID and initiated IV Digoxin 0.25mg q6h x 4 doses. Pulmonary consulted for pulmonary nodules concerning for malignancy. Patient also appears to have new systolic heart failure based on echocardiogram. Cardiology following. History Interval history: No new issues overnight. COVID19: Negative Hospitalist Physical - Constitutional Vitals: Temp Pulse Resp BP Pulse Ox 97.9 F 49 L 18 119/97 92 12/23/19 11:48 12/23/19 11:48 12/23/19 11:48 12/23/19 11:48 12/23/19 11:48 General appearance: Present: no acute distress - EENT Eyes: Present: PERRL, EOM intact ENT: hearing intact, clear oral mucosa, dentition normal - Neck Neck: Present: supple, normal ROM - Respiratory Respiratory effort: normal Respiratory: bilateral: CTA - Cardiovascular Rhythm: regular Heart Sounds: Present: S1 & S2. Absent: gallop, rub - Extremities Extremities: no ischemia, No edema, Full ROM - Abdominal General gastrointestinal: soft, non-tender, non-distended, normal bowel sounds - Integumentary Integumentary: Present: clear, warm, dry - Neurologic Neurologic: CNII-XII intact, moves all extremities Results - Labs CBC & Chem 7: 12/22/19 04:53 12/22/19 04:53 Labs: Laboratory Last Values WBC 20.8 K/mm3 (4.5-11.0) H 12/22/19 04:53 RBC 4.71 M/mm3 (3.65-5.03) 12/22/19 04:53 Hgb 14.0 gm/dl (11.8-15.2) 12/22/19 04:53 Hct 41.6 % (35.5-45.6) 12/22/19 04:53 MCV 88 fl (84-94) 12/22/19 04:53 MCH 30 pg (28-32) 12/22/19 04:53 MCHC 34 % (32-34) 12/22/19 04:53 RDW 14.1 % (13.2-15.2) 12/22/19 04:53 Plt Count 237 K/mm3 (140-440) 12/22/19 04:53 Lymph % (Auto) 11.9 % (13.4-35.0) L 12/20/19 20:59 [place] % (Auto) 10.7 % (0.0-7.3) H 12/20/19 20:59 Eos % (Auto) 1.9 % (0.0-4.3) 12/20/19 20:59 Baso % (Auto) 0.5 % (0.0-1.8) 12/20/19 20:59 Lymph # 1.4 K/mm3 (1.2-5.4) 12/20/19 20:59 [place] # 1.2 K/mm3 (0.0-0.8) H 12/20/19 20:59 Eos # 0.2 K/mm3 (0.0-0.4) 12/20/19 20:59 Baso # 0.1 K/mm3 (0.0-0.1) 12/20/19 20:59 Add Manual Diff Complete 12/22/19 04:53 Total Counted 100 12/22/19 04:53 Seg Neutrophils % 75.0 % (40.0-70.0) H 12/20/19 20:59 Seg Neuts % (Manual) 84.0 % (40.0-70.0) H 12/22/19 04:53 Band Neutrophils % 0 % 12/22/19 04:53 Lymphocytes % (Manual) 6.0 % (13.4-35.0) L 12/22/19 04:53 Reactive Lymphs % (Man) 0 % 12/22/19 04:53 Monocytes % (Manual) 9.0 % (0.0-7.3) H 12/22/19 04:53 Eosinophils % (Manual) 1.0 % (0.0-4.3) 12/22/19 04:53 Basophils % (Manual) 0 % (0.0-1.8) 12/22/19 04:53 Metamyelocytes % 0 % 12/22/19 04:53 Myelocytes % 0 % 12/22/19 04:53 Promyelocytes % 0 % 12/22/19 04:53 Blast Cells % 0 % 12/22/19 04:53 Nucleated RBC % Not Reportable 12/22/19 04:53 Seg Neutrophils # 8.6 K/mm3 (1.8-7.7) H 12/20/19 20:59 Seg Neutrophils # Man 17.5 K/mm3 (1.8-7.7) H 12/22/19 04:53 Band Neutrophils # 0.0 K/mm3 12/22/19 04:53 Lymphocytes # (Manual) 1.2 K/mm3 (1.2-5.4) 12/22/19 04:53 Abs React Lymphs (Man) 0.0 K/mm3 12/22/19 04:53 Monocytes # (Manual) 1.9 K/mm3 (0.0-0.8) H 12/22/19 04:53 Eosinophils # (Manual) 0.2 K/mm3 (0.0-0.4) 12/22/19 04:53 Basophils # (Manual) 0.0 K/mm3 (0.0-0.1) 12/22/19 04:53 Metamyelocytes # 0.0 K/mm3 12/22/19 04:53 Myelocytes # 0.0 K/mm3 12/22/19 04:53 Promyelocytes # 0.0 K/mm3 12/22/19 04:53 Blast Cells # 0.0 K/mm3 12/22/19 04:53 WBC Morphology Not Reportable 12/22/19 04:53 Hypersegmented Neuts Not Reportable 12/22/19 04:53 Hyposegmented Neuts Not Reportable 12/22/19 04:53 Hypogranular Neuts Not Reportable 12/22/19 04:53 Smudge Cells Not Reportable 12/22/19 04:53 Toxic Granulation Not Reportable 12/22/19 04:53 Toxic Vacuolation Not Reportable 12/22/19 04:53 Dohle Bodies Not Reportable 12/22/19 04:53 Pelger-Huet Anomaly Not Reportable 12/22/19 04:53 Kelly Rods Not Reportable 12/22/19 04:53 Platelet Estimate Consistent w auto 12/22/19 04:53 Clumped Platelets Not Reportable 12/22/19 04:53 Plt Clumps, EDTA Not Reportable 12/22/19 04:53 Large Platelets Not Reportable 12/22/19 04:53 Giant Platelets Not Reportable 12/22/19 04:53 Platelet Satelliting Not Reportable 12/22/19 04:53 Plt Morphology Comment Not Reportable 12/22/19 04:53 RBC Morphology Not Reportable 12/22/19 04:53 Dimorphic RBCs Not Reportable 12/22/19 04:53 Polychromasia Not Reportable 12/22/19 04:53 Hypochromasia Not Reportable 12/22/19 04:53 Poikilocytosis Not Reportable 12/22/19 04:53 Anisocytosis 1+ 12/22/19 04:53 Microcytosis Not Reportable 12/22/19 04:53 Macrocytosis Not Reportable 12/22/19 04:53 Spherocytes Not Reportable 12/22/19 04:53 Pappenheimer Bodies Not Reportable 12/22/19 04:53 Sickle Cells Not Reportable 12/22/19 04:53 Target Cells Not Reportable 12/22/19 04:53 Tear Drop Cells Not Reportable 12/22/19 04:53 Ovalocytes Not Reportable 12/22/19 04:53 Helmet Cells Not Reportable 12/22/19 04:53 [place] Bodies Not Reportable 12/22/19 04:53 [place] Rings Not Reportable 12/22/19 04:53 Naeem Cells Not Reportable 12/22/19 04:53 Bite Cells Not Reportable 12/22/19 04:53 Crenated Cell Not Reportable 12/22/19 04:53 Elliptocytes Not Reportable 12/22/19 04:53 Acanthocytes (Spur) Not Reportable 12/22/19 04:53 Rouleaux Not Reportable 12/22/19 04:53 Hemoglobin C Crystals Not Reportable 12/22/19 04:53 Schistocytes Not Reportable 12/22/19 04:53 Malaria parasites Not Reportable 12/22/19 04:53 Jay Bodies Not Reportable 12/22/19 04:53 Hem Pathologist Commnt No 12/22/19 04:53 PT 16.9 Sec. (12.2-14.9) H 12/21/19 10:35 INR 1.35 (0.87-1.13) H 12/21/19 10:35 APTT 40.2 Sec. (24.2-36.6) H 12/21/19 10:35 D-Dimer 870.11 ng/mlDDU (0-234) H 12/20/19 23:06 Heparin Anti-Xa Level 0.10 U.I./ml (0.3-0.7) L 12/21/19 16:31 Sodium 135 mmol/L (137-145) L 12/22/19 04:53 Potassium 4.7 mmol/L (3.6-5.0) 12/22/19 04:53 Chloride 92.3 mmol/L (98-107) L 12/22/19 04:53 Carbon Dioxide 23 mmol/L (22-30) 12/22/19 04:53 Anion Gap 24 mmol/L 12/22/19 04:53 BUN 33 mg/dL (9-20) H 12/22/19 04:53 Creatinine 1.7 mg/dL (0.8-1.5) H 12/22/19 04:53 Estimated GFR 51 ml/min 12/22/19 04:53 BUN/Creatinine Ratio 19 % 12/22/19 04:53 Glucose 175 mg/dL (75-100) H 12/22/19 04:53 POC Glucose 234 (70-105) H 12/23/19 11:57 Calcium 9.6 mg/dL (8.4-10.2) 12/22/19 04:53 Magnesium 2.60 mg/dL (1.7-2.3) H 12/21/19 10:39 Ferritin 454.6 ng/mL (13.0-400.0) H 12/20/19 23:06 Total Bilirubin 0.50 mg/dL (0.1-1.2) 12/20/19 20:59 AST 16 units/L (5-40) 12/20/19 20:59 ALT 18 units/L (7-56) 12/20/19 20:59 Alkaline Phosphatase 66 units/L (35-129) 12/20/19 20:59 Lactate Dehydrogenase 193 units/L (91-180) H 12/20/19 23:06 Troponin T < 0.010 ng/mL (0.00-0.029) 12/21/19 10:35 C-Reactive Protein 42.10 mg/dL (0.00-1.30) H 12/20/19 23:06 NT-Pro-B Natriuret Pep 134.4 pg/mL (0-900) 12/20/19 23:06 Total Protein 8.7 g/dL (6.3-8.2) H 12/20/19 20:59 Albumin 3.9 g/dL (3.9-5) 12/20/19 20:59 Albumin/Globulin Ratio 0.8 % 12/20/19 20:59 Lipase 21 units/L (13-60) 12/20/19 20:59 Procalcitonin 0.61 ng/mL (<0.15) 12/20/19 23:06 TSH 2.040 mlU/mL (0.270-4.200) 12/21/19 16:31 Free T4 1.13 ng/dL (0.76-1.46) 12/21/19 16:31 Miscellaneous Test See scanned result 12/21/19 Unknown Microbiology: Microbiology 12/22/19 Unknown Serum Cryptococcal Antigen - Final - Diagnostic Impressions Diagnostic Impressions: Echocardiogram 12/21/19 04:37 Transthoracic Echocardiogram Indication: Chest pain BP: 155/74 HR: 136 Conclusions *Global left ventricular systolic function is moderately decreased. *The estimated ejection fraction is 30-35%. *Mild concentric left ventricular hypertrophy is observed. *The right ventricular global systolic function is normal. *The left atrium is mild to moderately dilated. *There is trace tricuspid regurgitation. *The right ventricular systolic pressure is calculated at 30 mmHg. *There is trace of mitral regurgitation. *There is no evidence of aortic regurgitation. *Intravenous contrast was used to enhance endocardial border definition. *tds study secondary to afib Findings Left Ventricle: The left ventricular chamber size is normal. Mild concentric left ventricular hypertrophy is observed. Global left ventricular systolic function is moderately decreased. The estimated ejection fraction is 30-35%. The left ventricular diastolic filling pattern is restrictive. Left Atrium: The left atrium is mild to moderately dilated. Right Ventricle: The right ventricle is not well visualized. The right ventricular global systolic function is normal. Right Atrium: The right atrium is not well visualized. Aortic Valve: The aortic valve structure is normal. There is no evidence of aortic regurgitation. There is no evidence of aortic stenosis. Mitral Valve: The mitral valve leaflets are mildly thickened. There is trace of mitral regurgitation. Tricuspid Valve: The tricuspid valve leaflets are normal. There is trace tricuspid regurgitation. The right ventricular systolic pressure is calculated at 30 mmHg. Pulmonic Valve: The pulmonic valve appears normal. There is no evidence of pulmonic regurgitation. Pericardium: There is no pericardial effusion. Venous: The inferior vena cava appears normal. Contrast: Intravenous contrast was used to enhance endocardial border definition. Measurements Chambers 2D Name Value Normal Range IVSd (2D) 1.23 cm (0.6 - 1.1) LVPWd (2D) 1.22 cm (0.6 - 1.1) LVIDd (2D) 4.42 cm (3.7 - 5.6) LVIDs (2D) 3.91 cm (2 - 3.8) LV FS (2D) 11.68 % - EF Teichholz (2D) 25.46 % - Ao root diameter (2D) 3.51 cm (2 - 3.7) Volumes/Mass Name Value Normal Range LA ESV SP 4CH (A/L) 52.16 ml - LA ESV SP 2CH (A/L) 55.9 ml - LA ESV BP (A/L) 57.04 ml - LA ESV BP (A/L) index 24.27 ml/m2 - LA ESV SP 4CH (MOD) 49.54 ml - LA ESV SP 2CH (MOD) 51.96 ml - LA ESV BP (MOD) 53.25 ml - LA ESV BP (MOD) index 22.66 ml/m2 - Aortic Valve Name Value Normal Range AV Vmax 1.63 m/sec - AV VTI 23.77 cm - AV peak gradient 10.66 mmHg - AV mean gradient 7.23 mmHg - LVOT diameter 2.07 cm - LVOT Vmax 1.4 m/sec - LVOT VTI 20.03 cm - LVOT peak gradient 7.81 mmHg - LVOT mean gradient 4.76 mmHg - SV LVOT 67.52 ml - ALEX (continuity Vmax) 2.89 cm2 - ALEX (continuity VTI) 2.84 cm2 - Tricuspid Valve Name Value Normal Range TR Vmax 2.61 m/sec - TR peak gradient 27 mmHg - RAP 3 mmHg - RVSP 30 mmHg - Pulmonic Valve/Qp:Qs Name Value Normal Range PV Vmax 1.17 m/sec - PV peak gradient 5.46 mmHg - PV acceleration time 79.92 msec - Cuevas/IV: Voiding Method Urinal IV Catheter Type [Right Wrist] INT / Saline Lock IV Catheter Type [Left INT / Saline Lock Antecubital] IV Catheter Type [Left Hand] INT / Saline Lock Active Medications - Current Medications Current Medications: Generic Name Dose Route Start Last Admin Trade Name Freq PRN Reason Stop Dose Admin Acetaminophen 650 mg 12/21/19 04:30 12/23/19 10:10 Tylenol PO 650 mg Q4H PRN Administration Pain MILD(1-3)/Fever >100.5/NOLASCO Apixaban 5 mg 12/21/19 22:00 12/23/19 10:10 Eliquis PO 5 mg Q12HR YVETTE Administration Protocol Digoxin 0.25 mg 12/23/19 12:00 Lanoxin IV 12/24/19 06:01 Q6HR YVETTE Furosemide 20 mg 12/21/19 10:00 12/23/19 10:13 Lasix IV 20 mg QDAY YVETTE Administration Ceftriaxone Sodium 2 gm in 100 mls @ 200 mls/hr 12/21/19 22:00 12/22/19 22:13 Rocephin/Ns 2 Gm/100 Ml IV 200 mls/hr QHS YVETTE Administration Vancomycin HCl 2,000 mg/ 540 mls @ 250 mls/hr 12/23/19 16:00 Sodium Chloride IV Q24HR@1600 [facility] Insulin Human Regular 0 units 12/21/19 22:00 12/23/19 11:47 Humulin R SUB-Q 3 units ACHS YVETTE Administration Protocol Metoprolol Tartrate 100 mg 12/23/19 10:00 12/23/19 10:22 Metoprolol PO 100 mg BID YVETTE Administration Morphine Sulfate 2 mg 12/21/19 04:30 12/21/19 17:26 Morphine IV 2 mg Q4H PRN Administration Pain, Moderate (4-6) Naloxone HCl 0.1 mg 12/21/19 04:30 Naloxone IV Q2MIN PRN Res Rate </= 8 or 02 SAT < 92% Ondansetron HCl 4 mg 12/21/19 04:30 Zofran IV Q8H PRN Nausea And Vomiting Oxycodone/Acetaminophen 1 tab 12/21/19 04:30 12/23/19 11:44 Percocet 5/325 PO 1 tab Q6H PRN Administration Pain, Moderate (4-6) Sodium Chloride 10 ml 12/21/19 10:00 12/23/19 10:13 Sodium Chloride Flush Syringe 10 Ml IV 10 ml BID YVETTE Administration Sodium Chloride 10 ml 12/21/19 04:30 Sodium Chloride Flush Syringe 10 Ml IV PRN PRN LINE FLUSH Nutrition/Malnutrition Assess - Dietary Evaluation Nutrition/Malnutrition Findings: Nutrition Notes Start: 12/21/19 11:30 Freq: Status: Active Protocol: Document 12/22/19 12:36 RENETTA (Rec: 12/22/19 12:53 RENETTA [id number] [email or web address]) Nutrition Notes Initial or Follow up Assessment Current Diagnosis Diabetes,Hypertension Other Pertinent Diagnosis Chest pain, (L) pleural effusion, afib, bilat pneu, r/ o COVID-19 Current Diet Cardiac/Consistent CHO Labs/Tests BUN 33 Cr 1.7 BG 175 Pertinent Medications Lasix Height 5 ft 9 in Weight 120.1 kg [place] Body Weight (kg) 72.72 BMI 39.1 Weight Status Obese Subjective/Other Information RD interviewed pt via phone. He reports no recent wt changes. Appetite is good, however, he does not like the food served here. Pt declined ONS and verbalizes no food preferences. He consumed 29% of meals yesterday. COVID-19 test pending. Burn Absent Trauma Absent Minimum of two criteria No #1 Nutrition Diagnosis Inadequate oral intake Etiology food preferences As Evidenced by Signs and Symptoms pt consuming <50% of meals Is patient on ventilator? No Is Patient Ambulatory and/or Out of Bed Yes REE-([place]-St. Jeor-ambulatory/OOB) [ 2640.794 NUTR.[id number]] Kcal/Kg value to use for calculation 16 Approximate Energy Requirements Using 1922 kcal/Kg Calculation Used for Recommendations Kcal/kg Additional Notes Pro needs 0.8-1g/kg adjBW: 77- 96g/day Fluid needs 1ml/kcal Nutrition Intervention Change Diet Order: Continue current diet order; add one salt packet to each meal tray to increase PO intake Goal #1 PO intake of meals to meet at least 75% of energy and pro needs Anticipated Discharge Needs: CHO-controlled/low-sodium diet Follow-Up By: 12/24/19 Additional Comments F/U intakes
[2019-12-23] MEDS ORDERED: KETOROLAC 30 MG/1 ML INJ IV ONE (13:39)
[2019-12-23] MEDS ORDERED: POLYETHYLENE GLYCOL 3350 17 GM POWDER PO PRN (13:39)
--- NOTE | 2019-12-23 14:04 | Progress Note ---
Assessment and Plan Cultures/Microbiology: COVID-19: negative Crypto Ag: negative A/P: 54-year-old male with hypertension, diabetes, obesity who came into the emergency room with complaints of left-sided chest pain #Left pleural effusion: COVID negative. #Right lung multiple nodules. Given left-sided pleural effusion as well as right-sided nodular infiltrates, concern for possible malignancy. f/u pulmonary consult #Leucocytosis Recs: Continue IV Ceftriaxone, IV Vancomycin, renally dosed f/u pending fungal work-up: histoplasma urinary antigen, Aspergillus galacto lei and 1 3 beta D glucan f/u HIV f/u autoimmune work up: PACO, C3, C4, ANCA Anival Teresa MD, FACP [facility] ([facility] C: [phone] O: [phone] F: [phone] Subjective Date of service: 12/23/19 Principal diagnosis: AFib Interval history: Continues to feel better in terms of breathing. Low grade fevers continue. COVID19: Negative Objective - Exam Narrative Exam: Physical Exam: Constitutional: Alert, cooperative. No acute distress. Obese Head, Ears, Nose: Normocephalic, atraumatic. External ears, nose normal Eyes: Conjunctivae/corneas clear. No icterus. No ptosis. Neck: Supple, no meningeal signs Cardiovascular: S1, S2 normal. Respiratory: AE decreased on left side. GI: Soft, non-tender; bowel sounds normal. No peritoneal signs Musculoskeletal: No pedal edema, no cyanosis. Skin: No rash or abscess Hem/Lymphatic: No palpable cervical or supraclavicular nodes. No lymphangitis Psych: Mood ok. Affect normal Neurological: Awake, alert, oriented. No gross abnormality - Constitutional Vitals: Vital Signs Temp Pulse Resp BP Pulse Ox 97.9 F 49 L 18 119/97 92 12/23/19 11:48 12/23/19 12:00 12/23/19 11:48 12/23/19 11:48 12/23/19 11:48 Temperature -Last 24 Hours Temperature 97.9 F Temperature 100.0 F Temperature 98.2 F Temperature 99.7 F Temperature 100.0 F Temperature 98.5 F Temperature 100.1 F - Labs CBC & Chem 7: 12/22/19 04:53 12/22/19 04:53 Labs: Abnormal lab results 12/22/19 12/22/19 12/23/19 Range/Units 17:11 20:39 08:46 POC Glucose 218 H 187 H 197 H (70-105) 12/23/19 Range/Units 11:57 POC Glucose 234 H (70-105)
[2019-12-23] MEDS: VANCOMYCIN 2,000 MG in SODIUM CHLORIDE 0.9% 500 ML 500 ML IV SCH (15:46)
[2019-12-23] MEDS ORDERED: FUROSEMIDE 100 MG/10 ML INJ IV ONE (21:29)
[2019-12-23] MEDS: cefTRIAXone/NS 2 GM/100 ML 2 GM/100 ML BAG IV SCH (21:46)
[2019-12-23] MEDS ORDERED: ZOLPIDEM 5 MG TAB PO PRN (22:00)
[2019-12-24 04:26] LABS: Hematocrit 37.2 % (35.5-45.6); Hemoglobin 12.6 gm/dl (11.8-15.2); Mean Corpuscular HGB Conc 34 % (32-34); Mean Corpuscular Volume 88 fl (84-94); Platelet Count 243 K/mm3 (140-440); Red Blood Count 4.24 M/mm3 (3.65-5.03); Red Cell Distribution Width 14.1 % (13.2-15.2)
[2019-12-24 04:45] LABS: BUN/Creatinine Ratio 27; Blood Urea Nitrogen 38 mg/dL (9-20); Hemolysis Index 3
[2019-12-24] MEDS: FUROSEMIDE 20 MG/2 ML INJ IV SCH (09:15)
[2019-12-24] MEDS: METOPROLOL TARTRATE 100 MG TAB PO SCH ×2 (09:15→22:11)
[2019-12-24] MEDS: APIXABAN 5 MG TAB PO SCH ×2 (10:11→22:12)
[2019-12-24] MEDS: INSULIN REGULAR, HUMAN 100 UNITS/1 ML SUB-Q SCH ×4 (10:16→22:12)
--- NOTE | 2019-12-24 10:34 | Progress Note ---
Assessment and Plan Assessment and plan: COVID-19 suspected - Etiology sought in this pt with moderate left pleural effusion, bilateral infiltrates on CXR and slightly positive serum inflammatory markers that are suggestive of Covid 19. -Continue Rocephin IV and Hydrochloroquine - Droplet and contact isolations ordered - continue telemonitoring Bilateral pneumonia. Continue antibiotics as above Sepsis. Continue antibiotics and follow-up blood cultures. Left Pleural effusion - etiology likely parapneumonic -Follow-up echocardiogram - continue Oxygen support - IV lasix per cardiology recommendation Acute hypoxemic respiratory failure. Etiology secondary to above. Continue O2 for supportive care Afib with RVR Cardizem p.o. HTN - essential and longstanding - LVH present on ECG. - control BP effectively DM - Accuchecks - monitor full code. 12/22/2019. Patient changed from Cardizem drip to Cardizem p.o. Continue Eliquis. Heparin drip discontinued. Thyroid profile normal. Patient reportedly had 2 episodes of V. tach each less than 10 beat run. Follow-up echocardiogram. COVID-19 test is negative. The patient will be transferred to the telemetry floor. Continue Plaquenil. Cardiology and ID following. 12/23/2019. Echocardiogram completed and revealed EF 30-35%; mild LVH; trace MR; trace TR. patient remains in A. fib but rate controlled. Cardiology switched PO Cardizem to PO Lopressor 100mg BID and initiated IV Digoxin 0.25mg q6h x 4 doses. Pulmonary consulted for pulmonary nodules concerning for malignancy. Patient also appears to have new systolic heart failure based on echocardiogram. Cardiology following. 12/24/2019. Nurse reports patient would like to leave A. However, the patient has now changed his mind and will stay in the hospital until Friday. Eliquis will be on hold for thoracentesis planned for Friday. Continue digoxin and Lopressor for atrial fibrillation. Continue GDMT for heart failure. History Interval history: No new issues overnight. COVID19: Negative Hospitalist Physical - Constitutional Vitals: Temp Pulse Resp BP Pulse Ox 98.4 F 140 H 18 156/83 96 12/24/19 07:37 12/24/19 10:12 12/24/19 07:37 12/24/19 10:12 12/24/19 07:37 General appearance: Present: no acute distress - EENT Eyes: Present: PERRL, EOM intact ENT: hearing intact, clear oral mucosa, dentition normal - Neck Neck: Present: supple, normal ROM - Respiratory Respiratory effort: normal Respiratory: bilateral: CTA - Cardiovascular Rhythm: regular Heart Sounds: Present: S1 & S2. Absent: gallop, rub - Extremities Extremities: no ischemia, No edema, Full ROM - Abdominal General gastrointestinal: soft, non-tender, non-distended, normal bowel sounds - Integumentary Integumentary: Present: clear, warm, dry - Neurologic Neurologic: CNII-XII intact, moves all extremities Results - Labs CBC & Chem 7: 12/24/19 03:39 12/24/19 03:39 Labs: Laboratory Last Values WBC 17.4 K/mm3 (4.5-11.0) H 12/24/19 03:39 RBC 4.24 M/mm3 (3.65-5.03) 12/24/19 03:39 Hgb 12.6 gm/dl (11.8-15.2) 12/24/19 03:39 Hct 37.2 % (35.5-45.6) 12/24/19 03:39 MCV 88 fl (84-94) 12/24/19 03:39 MCH 30 pg (28-32) 12/24/19 03:39 MCHC 34 % (32-34) 12/24/19 03:39 RDW 14.1 % (13.2-15.2) 12/24/19 03:39 Plt Count 243 K/mm3 (140-440) 12/24/19 03:39 Lymph % (Auto) 11.9 % (13.4-35.0) L 12/20/19 20:59 Coffee % (Auto) 10.7 % (0.0-7.3) H 12/20/19 20:59 Eos % (Auto) 1.9 % (0.0-4.3) 12/20/19 20:59 Baso % (Auto) 0.5 % (0.0-1.8) 12/20/19 20:59 Lymph # 1.4 K/mm3 (1.2-5.4) 12/20/19 20:59 Coffee # 1.2 K/mm3 (0.0-0.8) H 12/20/19 20:59 Eos # 0.2 K/mm3 (0.0-0.4) 12/20/19 20:59 Baso # 0.1 K/mm3 (0.0-0.1) 12/20/19 20:59 Add Manual Diff Complete 12/22/19 04:53 Total Counted 100 12/22/19 04:53 Seg Neutrophils % 75.0 % (40.0-70.0) H 12/20/19 20:59 Seg Neuts % (Manual) 84.0 % (40.0-70.0) H 12/22/19 04:53 Band Neutrophils % 0 % 12/22/19 04:53 Lymphocytes % (Manual) 6.0 % (13.4-35.0) L 12/22/19 04:53 Reactive Lymphs % (Man) 0 % 12/22/19 04:53 Monocytes % (Manual) 9.0 % (0.0-7.3) H 12/22/19 04:53 Eosinophils % (Manual) 1.0 % (0.0-4.3) 12/22/19 04:53 Basophils % (Manual) 0 % (0.0-1.8) 12/22/19 04:53 Metamyelocytes % 0 % 12/22/19 04:53 Myelocytes % 0 % 12/22/19 04:53 Promyelocytes % 0 % 12/22/19 04:53 Blast Cells % 0 % 12/22/19 04:53 Nucleated RBC % Not Reportable 12/22/19 04:53 Seg Neutrophils # 8.6 K/mm3 (1.8-7.7) H 12/20/19 20:59 Seg Neutrophils # Man 17.5 K/mm3 (1.8-7.7) H 12/22/19 04:53 Band Neutrophils # 0.0 K/mm3 12/22/19 04:53 Lymphocytes # (Manual) 1.2 K/mm3 (1.2-5.4) 12/22/19 04:53 Abs React Lymphs (Man) 0.0 K/mm3 12/22/19 04:53 Monocytes # (Manual) 1.9 K/mm3 (0.0-0.8) H 12/22/19 04:53 Eosinophils # (Manual) 0.2 K/mm3 (0.0-0.4) 12/22/19 04:53 Basophils # (Manual) 0.0 K/mm3 (0.0-0.1) 12/22/19 04:53 Metamyelocytes # 0.0 K/mm3 12/22/19 04:53 Myelocytes # 0.0 K/mm3 12/22/19 04:53 Promyelocytes # 0.0 K/mm3 12/22/19 04:53 Blast Cells # 0.0 K/mm3 12/22/19 04:53 WBC Morphology Not Reportable 12/22/19 04:53 Hypersegmented Neuts Not Reportable 12/22/19 04:53 Hyposegmented Neuts Not Reportable 12/22/19 04:53 Hypogranular Neuts Not Reportable 12/22/19 04:53 Smudge Cells Not Reportable 12/22/19 04:53 Toxic Granulation Not Reportable 12/22/19 04:53 Toxic Vacuolation Not Reportable 12/22/19 04:53 Dohle Bodies Not Reportable 12/22/19 04:53 Pelger-Huet Anomaly Not Reportable 12/22/19 04:53 Kelly Rods Not Reportable 12/22/19 04:53 Platelet Estimate Consistent w auto 12/22/19 04:53 Clumped Platelets Not Reportable 12/22/19 04:53 Plt Clumps, EDTA Not Reportable 12/22/19 04:53 Large Platelets Not Reportable 12/22/19 04:53 Giant Platelets Not Reportable 12/22/19 04:53 Platelet Satelliting Not Reportable 12/22/19 04:53 Plt Morphology Comment Not Reportable 12/22/19 04:53 RBC Morphology Not Reportable 12/22/19 04:53 Dimorphic RBCs Not Reportable 12/22/19 04:53 Polychromasia Not Reportable 12/22/19 04:53 Hypochromasia Not Reportable 12/22/19 04:53 Poikilocytosis Not Reportable 12/22/19 04:53 Anisocytosis 1+ 12/22/19 04:53 Microcytosis Not Reportable 12/22/19 04:53 Macrocytosis Not Reportable 12/22/19 04:53 Spherocytes Not Reportable 12/22/19 04:53 Pappenheimer Bodies Not Reportable 12/22/19 04:53 Sickle Cells Not Reportable 12/22/19 04:53 Target Cells Not Reportable 12/22/19 04:53 Tear Drop Cells Not Reportable 12/22/19 04:53 Ovalocytes Not Reportable 12/22/19 04:53 Helmet Cells Not Reportable 12/22/19 04:53 [place] Bodies Not Reportable 12/22/19 04:53 Dimock Rings Not Reportable 12/22/19 04:53 Naeem Cells Not Reportable 12/22/19 04:53 Bite Cells Not Reportable 12/22/19 04:53 Crenated Cell Not Reportable 12/22/19 04:53 Elliptocytes Not Reportable 12/22/19 04:53 Acanthocytes (Spur) Not Reportable 12/22/19 04:53 Rouleaux Not Reportable 12/22/19 04:53 Hemoglobin C Crystals Not Reportable 12/22/19 04:53 Schistocytes Not Reportable 12/22/19 04:53 Malaria parasites Not Reportable 12/22/19 04:53 Jay Bodies Not Reportable 12/22/19 04:53 Hem Pathologist Commnt No 12/22/19 04:53 PT 16.9 Sec. (12.2-14.9) H 12/21/19 10:35 INR 1.35 (0.87-1.13) H 12/21/19 10:35 APTT 40.2 Sec. (24.2-36.6) H 12/21/19 10:35 D-Dimer 870.11 ng/mlDDU (0-234) H 12/20/19 23:06 Heparin Anti-Xa Level 0.10 U.I./ml (0.3-0.7) L 12/21/19 16:31 Sodium 135 mmol/L (137-145) L 12/24/19 03:39 Potassium 4.5 mmol/L (3.6-5.0) 12/24/19 03:39 Chloride 95.1 mmol/L (98-107) L 12/24/19 03:39 Carbon Dioxide 23 mmol/L (22-30) 12/24/19 03:39 Anion Gap 21 mmol/L 12/24/19 03:39 BUN 38 mg/dL (9-20) H 12/24/19 03:39 Creatinine 1.4 mg/dL (0.8-1.5) 12/24/19 03:39 Estimated GFR > 60 ml/min 12/24/19 03:39 BUN/Creatinine Ratio 27 % 12/24/19 03:39 Glucose 147 mg/dL (75-100) H 12/24/19 03:39 POC Glucose 176 (70-105) H 12/24/19 08:04 Calcium 9.0 mg/dL (8.4-10.2) 12/24/19 03:39 Magnesium 2.60 mg/dL (1.7-2.3) H 12/21/19 10:39 Ferritin 454.6 ng/mL (13.0-400.0) H 12/20/19 23:06 Total Bilirubin 0.50 mg/dL (0.1-1.2) 12/20/19 20:59 AST 16 units/L (5-40) 12/20/19 20:59 ALT 18 units/L (7-56) 12/20/19 20:59 Alkaline Phosphatase 66 units/L (35-129) 12/20/19 20:59 Lactate Dehydrogenase 193 units/L (91-180) H 12/20/19 23:06 Troponin T < 0.010 ng/mL (0.00-0.029) 12/21/19 10:35 C-Reactive Protein 42.10 mg/dL (0.00-1.30) H 12/20/19 23:06 NT-Pro-B Natriuret Pep 134.4 pg/mL (0-900) 12/20/19 23:06 Total Protein 8.7 g/dL (6.3-8.2) H 12/20/19 20:59 Albumin 3.9 g/dL (3.9-5) 12/20/19 20:59 Albumin/Globulin Ratio 0.8 % 12/20/19 20:59 Lipase 21 units/L (13-60) 12/20/19 20:59 Procalcitonin 4.60 ng/mL (<0.15) 12/24/19 03:39 TSH 2.040 mlU/mL (0.270-4.200) 12/21/19 16:31 Free T4 1.13 ng/dL (0.76-1.46) 12/21/19 16:31 Miscellaneous Test See scanned result 12/21/19 Unknown - Diagnostic Impressions Diagnostic Impressions: Echocardiogram 12/21/19 04:37 Transthoracic Echocardiogram Indication: Chest pain BP: 155/74 HR: 136 Conclusions *Global left ventricular systolic function is moderately decreased. *The estimated ejection fraction is 30-35%. *Mild concentric left ventricular hypertrophy is observed. *The right ventricular global systolic function is normal. *The left atrium is mild to moderately dilated. *There is trace tricuspid regurgitation. *The right ventricular systolic pressure is calculated at 30 mmHg. *There is trace of mitral regurgitation. *There is no evidence of aortic regurgitation. *Intravenous contrast was used to enhance endocardial border definition. *tds study secondary to afib Findings Left Ventricle: The left ventricular chamber size is normal. Mild concentric left ventricular hypertrophy is observed. Global left ventricular systolic function is moderately decreased. The estimated ejection fraction is 30-35%. The left ventricular diastolic filling pattern is restrictive. Left Atrium: The left atrium is mild to moderately dilated. Right Ventricle: The right ventricle is not well visualized. The right ventricular global systolic function is normal. Right Atrium: The right atrium is not well visualized. Aortic Valve: The aortic valve structure is normal. There is no evidence of aortic regurgitation. There is no evidence of aortic stenosis. Mitral Valve: The mitral valve leaflets are mildly thickened. There is trace of mitral regurgitation. Tricuspid Valve: The tricuspid valve leaflets are normal. There is trace tricuspid regurgitation. The right ventricular systolic pressure is calculated at 30 mmHg. Pulmonic Valve: The pulmonic valve appears normal. There is no evidence of pulmonic regurgitation. Pericardium: There is no pericardial effusion. Venous: The inferior vena cava appears normal. Contrast: Intravenous contrast was used to enhance endocardial border definition. Measurements Chambers 2D Name Value Normal Range IVSd (2D) 1.23 cm (0.6 - 1.1) LVPWd (2D) 1.22 cm (0.6 - 1.1) LVIDd (2D) 4.42 cm (3.7 - 5.6) LVIDs (2D) 3.91 cm (2 - 3.8) LV FS (2D) 11.68 % - EF Teichholz (2D) 25.46 % - Ao root diameter (2D) 3.51 cm (2 - 3.7) Volumes/Mass Name Value Normal Range LA ESV SP 4CH (A/L) 52.16 ml - LA ESV SP 2CH (A/L) 55.9 ml - LA ESV BP (A/L) 57.04 ml - LA ESV BP (A/L) index 24.27 ml/m2 - LA ESV SP 4CH (MOD) 49.54 ml - LA ESV SP 2CH (MOD) 51.96 ml - LA ESV BP (MOD) 53.25 ml - LA ESV BP (MOD) index 22.66 ml/m2 - Aortic Valve Name Value Normal Range AV Vmax 1.63 m/sec - AV VTI 23.77 cm - AV peak gradient 10.66 mmHg - AV mean gradient 7.23 mmHg - LVOT diameter 2.07 cm - LVOT Vmax 1.4 m/sec - LVOT VTI 20.03 cm - LVOT peak gradient 7.81 mmHg - LVOT mean gradient 4.76 mmHg - SV LVOT 67.52 ml - ALEX (continuity Vmax) 2.89 cm2 - ALEX (continuity VTI) 2.84 cm2 - Tricuspid Valve Name Value Normal Range TR Vmax 2.61 m/sec - TR peak gradient 27 mmHg - RAP 3 mmHg - RVSP 30 mmHg - Pulmonic Valve/Qp:Qs Name Value Normal Range PV Vmax 1.17 m/sec - PV peak gradient 5.46 mmHg - PV acceleration time 79.92 msec - Cuevas/IV: Voiding Method Urinal IV Catheter Type [Right Wrist] INT / Saline Lock IV Catheter Type [Left INT / Saline Lock Antecubital] IV Catheter Type [Left Hand] INT / Saline Lock Active Medications - Current Medications Current Medications: Generic Name Dose Route Start Last Admin Trade Name Freq PRN Reason Stop Dose Admin Acetaminophen 650 mg 12/21/19 04:30 12/23/19 10:10 Tylenol PO 650 mg Q4H PRN Administration Pain MILD(1-3)/Fever >100.5/NOLASCO Apixaban 5 mg 12/21/19 22:00 12/24/19 10:11 Eliquis PO 5 mg Q12HR YVETTE Administration Protocol Digoxin 0.25 mg 12/24/19 11:00 12/24/19 10:12 Lanoxin IV 12/25/19 00:01 0.25 mg Q6HR YVETTE Administration Furosemide 20 mg 12/21/19 10:00 12/24/19 09:15 Lasix IV 20 mg QDAY [facility] Administration Ceftriaxone Sodium 2 gm in 100 mls @ 200 mls/hr 12/21/19 22:00 12/23/19 21:46 Rocephin/Ns 2 Gm/100 Ml IV 200 mls/hr QHS YVETTE Administration Vancomycin HCl 2,000 mg/ 540 mls @ 250 mls/hr 12/23/19 16:00 12/23/19 15:46 Sodium Chloride IV 250 mls/hr Q24HR@1600 YVETTE Administration Insulin Human Regular 0 units 12/21/19 22:00 12/24/19 10:16 Humulin R SUB-Q Not Given ACHS [facility] Protocol Metoprolol Tartrate 100 mg 12/23/19 10:00 12/24/19 09:15 Metoprolol PO 100 mg BID YVETTE Administration Morphine Sulfate 2 mg 12/21/19 04:30 12/21/19 17:26 Morphine IV 2 mg Q4H PRN Administration Pain, Moderate (4-6) Naloxone HCl 0.1 mg 12/21/19 04:30 Naloxone IV Q2MIN PRN Res Rate </= 8 or 02 SAT < 92% Ondansetron HCl 4 mg 12/21/19 04:30 Zofran IV Q8H PRN Nausea And Vomiting Oxycodone/Acetaminophen 1 tab 12/21/19 04:30 12/23/19 11:44 Percocet 5/325 PO 1 tab Q6H PRN Administration Pain, Moderate (4-6) Polyethylene Glycol 17 gm 12/23/19 13:39 Miralax 3350 PO BID PRN Constipation Sodium Chloride 10 ml 12/21/19 10:00 12/24/19 09:16 Sodium Chloride Flush Syringe 10 Ml IV 10 ml BID YVETTE Administration Sodium Chloride 10 ml 12/21/19 04:30 Sodium Chloride Flush Syringe 10 Ml IV PRN PRN LINE FLUSH Zolpidem Tartrate 5 mg 12/23/19 22:00 Ambien PO QHS PRN Sleep Nutrition/Malnutrition Assess - Dietary Evaluation Nutrition/Malnutrition Findings: Nutrition Notes Start: 12/21/19 11:30 Freq: Status: Active Protocol: Document 12/22/19 12:36 RENETTA (Rec: 12/22/19 12:53 RENETTA BERNARDOW- [email or web address]) Nutrition Notes Initial or Follow up Assessment Current Diagnosis Diabetes,Hypertension Other Pertinent Diagnosis Chest pain, (L) pleural effusion, afib, bilat pneu, r/ o COVID-19 Current Diet Cardiac/Consistent CHO Labs/Tests BUN 33 Cr 1.7 BG 175 Pertinent Medications Lasix Height 5 ft 9 in Weight 120.1 kg [place] Body Weight (kg) 72.72 BMI 39.1 Weight Status Obese Subjective/Other Information RD interviewed pt via phone. He reports no recent wt changes. Appetite is good, however, he does not like the food served here. Pt declined ONS and verbalizes no food preferences. He consumed 29% of meals yesterday. COVID-19 test pending. Burn Absent Trauma Absent Minimum of two criteria No #1 Nutrition Diagnosis Inadequate oral intake Etiology food preferences As Evidenced by Signs and Symptoms pt consuming <50% of meals Is patient on ventilator? No Is Patient Ambulatory and/or Out of Bed Yes REE-([place]-St. Jeor-ambulatory/OOB) [ 2640.794 NUTR.[id number]] Kcal/Kg value to use for calculation 16 Approximate Energy Requirements Using 1922 kcal/Kg Calculation Used for Recommendations Kcal/kg Additional Notes Pro needs 0.8-1g/kg adjBW: 77- 96g/day Fluid needs 1ml/kcal Nutrition Intervention Change Diet Order: Continue current diet order; add one salt packet to each meal tray to increase PO intake Goal #1 PO intake of meals to meet at least 75% of energy and pro needs Anticipated Discharge Needs: CHO-controlled/low-sodium diet Follow-Up By: 12/24/19 Additional Comments F/U intakes
[2019-12-24] MEDS ORDERED: DIGOXIN 0.5 MG/2 ML INJ IV SCH (11:00)
--- NOTE | 2019-12-24 11:12 | Progress Note ---
<FIDELINA SIMMS - Last Filed: 12/24/19 12:31> Assessment and Plan Pt in AF 150s on tele this AM. Converted to NSR after 1 dose of IV Digoxin. Will administer 1 more dose of IV Dig this evening (2 doses total) then convert to PO Digoxin 0.125mg qDay in AM. Continue PO Lopressor 100mg BID. Continue Eliquis. Continue tele monitoring. Plan for US-guided thoracentesis today. May continue Eliquis per Pulm. Pt seen in conjunction with Dr. Roa, who agrees with the assessment and plan of care. - Patient Problems (1) Atrial fibrillation with rapid ventricular response Current Visit: Yes Status: Acute (2) Cardiomyopathy Current Visit: Yes Status: Acute (3) Pneumonia Current Visit: Yes Status: Acute Qualifiers: Laterality: bilateral (4) Pleural effusion, left Current Visit: Yes Status: Acute (5) HTN (hypertension) Current Visit: Yes Status: Chronic Qualifiers: Hypertension type: essential hypertension Qualified Code(s): I10 - Essential (primary) hypertension (6) Diabetes Current Visit: Yes Status: Chronic Qualifiers: Diabetes mellitus type: type 2 Subjective Date of service: 12/24/19 Principal diagnosis: AFib Interval history: Pt converted to NSR yesterday upon receiving first dose of PO Lopressor 100mg; however, he was found to be in AF again this AM with rate 150s. Pt states this occurred when he got out of bed and started moving around. Pt reports feeling hot on the left side of his chest and rib cage during episodes of AF. He denies CP, palpitations, SOB, or any additional cardiac sx. Pt sitting up in bed comfortably upon exam. PUI?: Yes COVID19: Negative Objective Last Vital Signs Temp 98.4 F 12/24/19 07:37 Pulse 88 12/24/19 11:00 Resp 18 12/24/19 07:37 BP 110/66 12/24/19 11:00 Pulse Ox 92 12/24/19 11:00 - Physical Examination General: No Apparent Distress HEENT: Positive: EOMI, Normocephaly, Mucus Membranes Moist Neck: Positive: neck supple, trachea midline. Negative: JVD/HJR Cardiac: Positive: irregularly irregular, S1/S2 Lungs: Positive: Decreased Breath Sounds (L side), No Wheeze, Rales, Rhonchi Neuro: Positive: Grossly Intact, Motor Function Intact, Coordination Normal, Sensory Function Intact. Negative: Numbness, Weakness Abdomen: Positive: Soft, Active Bowel Sounds. Negative: Tender Skin: Negative: Rash, Suspicious Lesions Musculoskeletal: No Pain, Normal Range of Motion Extremities: Present: upper extr. pulses, lower extr. pulses. Absent: edema - Labs and Meds CBC 12/24/19 Range/Units 03:39 WBC 17.4 H (4.5-11.0) K/mm3 RBC 4.24 (3.65-5.03) M/mm3 Hgb 12.6 (11.8-15.2) gm/dl Hct 37.2 (35.5-45.6) % Plt Count 243 (140-440) K/mm3 Comprehensive Metabolic Panel 12/24/19 Range/Units 03:39 Sodium 135 L (137-145) mmol/L Potassium 4.5 (3.6-5.0) mmol/L Chloride 95.1 L (98-107) mmol/L Carbon Dioxide 23 (22-30) mmol/L BUN 38 H (9-20) mg/dL Creatinine 1.4 (0.8-1.5) mg/dL Glucose 147 H (75-100) mg/dL Calcium 9.0 (8.4-10.2) mg/dL - Imaging and Cardiology EKG: report reviewed, image reviewed Echo: report reviewed (EF 30-35%; mild LVH; trace MR; trace TR) - Telemetry EKG Rhythm: Atrial Fibrillation (150-160s) - EKG Sinus rhythms and dysrhythmias: sinus rhythm Supraventricular dysrhythmia: atrial premature complexe <LAYLA ROA R - Last Filed: 12/24/19 12:40> Assessment and Plan case was discussed with sister, pt is now back in nsr and possible d.c in am if rate is maintained and pt may need home o2, pt sat drop to 86% Objective Vital Signs Temp Pulse Pulse Resp BP BP Pulse Ox 12/24/19 12:05 98.2 F 89 18 140/84 91 12/24/19 11:00 88 110/66 92 12/24/19 10:52 93 12/24/19 10:12 140 H 156/83 12/24/19 09:15 150 H 156/83 12/24/19 07:37 98.4 F 91 H 18 156/83 96 12/24/19 05:03 98.6 F 95 H 20 156/83 96 12/24/19 00:26 99.0 F 88 20 121/73 95 12/23/19 23:48 98.4 F 86 18 132/80 94 12/23/19 22:00 85 85 94 12/23/19 21:45 82 159/83 12/23/19 21:01 98.0 F 88 20 150/83 95 12/23/19 20:57 98.9 F 88 20 159/83 93 12/23/19 16:06 98.6 F 62 18 123/89 94 - Labs and Meds CBC 12/24/19 Range/Units 03:39 WBC 17.4 H (4.5-11.0) K/mm3 RBC 4.24 (3.65-5.03) M/mm3 Hgb 12.6 (11.8-15.2) gm/dl Hct 37.2 (35.5-45.6) % Plt Count 243 (140-440) K/mm3 Comprehensive Metabolic Panel 12/24/19 Range/Units 03:39 Sodium 135 L (137-145) mmol/L Potassium 4.5 (3.6-5.0) mmol/L Chloride 95.1 L (98-107) mmol/L Carbon Dioxide 23 (22-30) mmol/L BUN 38 H (9-20) mg/dL Creatinine 1.4 (0.8-1.5) mg/dL Glucose 147 H (75-100) mg/dL Calcium 9.0 (8.4-10.2) mg/dL
--- NOTE | 2019-12-24 12:57 | Progress Note ---
Assessment and Plan Cultures/Microbiology: COVID-19: negative Crypto Ag: negative A/P: 54-year-old male with hypertension, diabetes, obesity who came into the emergency room with complaints of left-sided chest pain #Left pleural effusion: COVID negative. ?parapneumonic v/s malignancy related v/s autoimmune. #Right lung multiple nodules. Given left-sided pleural effusion as well as right-sided nodular infiltrates, concern for possible malignancy. Appreciate pulmonary consult. #Leucocytosis #JEANNE: renally dose abx. Creatinine slightly better. Recs: Continue IV Ceftriaxone, IV Vancomycin with trough monitoring, especially considering obesity f/u L thoracentesis: pleural fluid studies, cytology and cultures f/u pending fungal work-up: histoplasma urinary antigen, Aspergillus galactom ashlyn and 1 3 beta D glucan f/u HIV f/u autoimmune work up: PACO, C3, C4, ANCA Anival Teresa MD, FACP [facility] C: [phone] O: [phone] F: [phone] Subjective Date of service: 12/24/19 Principal diagnosis: AFib Interval history: No fever. Awaiting thoracentesis by pulmonary Dr. Cat. No complaints. PUI?: Yes COVID19: Negative Objective - Exam Narrative Exam: Physical Exam: Constitutional: Alert, cooperative. No acute distress. Obese Head, Ears, Nose: Normocephalic, atraumatic. External ears, nose normal Eyes: Conjunctivae/corneas clear. No icterus. No ptosis. Neck: Supple, no meningeal signs Cardiovascular: S1, S2 normal. Respiratory: AE decreased on left side. GI: Soft, non-tender; bowel sounds normal. No peritoneal signs Musculoskeletal: No pedal edema, no cyanosis. Skin: No rash or abscess Hem/Lymphatic: No palpable cervical or supraclavicular nodes. No lymphangitis Psych: Mood ok. Affect normal Neurological: Awake, alert, oriented. No gross abnormality - Constitutional Vitals: Vital Signs Temp Pulse Resp BP Pulse Ox 98.2 F 89 18 140/84 91 12/24/19 12:05 12/24/19 12:05 12/24/19 12:05 12/24/19 12:05 12/24/19 12:05 Temperature -Last 24 Hours Temperature 98.2 F Temperature 98.4 F Temperature 98.6 F Temperature 99.0 F Temperature 98.4 F Temperature 98.0 F Temperature 98.9 F Temperature 98.6 F - Labs CBC & Chem 7: 12/24/19 03:39 12/24/19 03:39 Labs: Abnormal lab results 12/23/19 12/23/19 12/23/19 Range/Units 16:14 21:14 23:57 WBC (4.5-11.0) K/mm3 Sodium (137-145) mmol/L Chloride (98-107) mmol/L BUN (9-20) mg/dL Glucose (75-100) mg/dL POC Glucose 142 H 168 H 157 H (70-105) 12/24/19 12/24/19 12/24/19 Range/Units 03:39 03:39 08:04 WBC 17.4 H (4.5-11.0) K/mm3 Sodium 135 L (137-145) mmol/L Chloride 95.1 L (98-107) mmol/L BUN 38 H (9-20) mg/dL Glucose 147 H (75-100) mg/dL POC Glucose 176 H (70-105)
--- NOTE | 2019-12-24 13:09 | Progress Note ---
Assessment and Plan 54 y/o with left sided pleural effusion and multiple nodules in right upper lobe of lung 1. Not enough fluid to tap at this time. 2. Will ask radiology to measure the size of the nodules and place them in the report. If all larger than 1cm will arrange outpatient PET and possibly biopsy post pet. If less than 1cm, will repeat in 6-8 months. Patient is a lifelong nonsmoker. 3. Consider CT of ABdomen and Pelvis as well. 4. All others per primary team and other consultants. 5. Patient likely has untreated HUGO and possible OHS, will screen of HUGO at hospital follow up. Will continue to follow. Subjective Date of service: 12/24/19 Principal diagnosis: AFib Interval history: No acute events. Took US to room to attempt thoracentesis but not enough fluid seen. Long discussion at bedside with sister on the phone and patient. Risk M anagement was present as well. PUI?: Yes COVID19: Negative Objective Vital Signs - 12hr 12/24/19 12/24/19 12/24/19 05:03 07:37 09:15 Temperature 98.6 F 98.4 F Pulse Rate 95 H 91 H 150 H Respiratory 20 18 Rate Blood Pressure 156/83 156/83 156/83 Blood Pressure [Left] O2 Sat by Pulse 96 96 Oximetry 12/24/19 12/24/19 12/24/19 10:12 10:52 11:00 Temperature Pulse Rate 140 H 88 Respiratory Rate Blood Pressure 156/83 Blood Pressure 110/66 [Left] O2 Sat by Pulse 93 92 Oximetry 12/24/19 12:05 Temperature 98.2 F Pulse Rate 89 Respiratory 18 Rate Blood Pressure 140/84 Blood Pressure [Left] O2 Sat by Pulse 91 Oximetry CBC and BMP: 12/24/19 03:39 12/24/19 03:39 ABG, PT/INR, D-dimer: PT/INR, D-dimer PT 16.9 Sec. (12.2-14.9) H 12/21/19 10:35 INR 1.35 (0.87-1.13) H 12/21/19 10:35 D-Dimer 870.11 ng/mlDDU (0-234) H 12/20/19 23:06 Abnormal lab findings: Abnormal Labs 12/20/19 12/20/19 12/20/19 20:59 20:59 23:06 WBC 11.4 H MCHC 35 H Lymph % (Auto) 11.9 L [place] % (Auto) 10.7 H [place] # 1.2 H Seg Neutrophils % 75.0 H Seg Neuts % (Manual) Lymphocytes % (Manual) Monocytes % (Manual) Seg Neutrophils # 8.6 H Seg Neutrophils # Man Lymphocytes # (Manual) Monocytes # (Manual) PT 17.0 H INR 1.36 H APTT D-Dimer 870.11 H Heparin Anti-Xa Level Sodium 134 L Potassium Chloride 95.6 L BUN Creatinine Glucose 174 H POC Glucose Magnesium Ferritin Lactate Dehydrogenase C-Reactive Protein Total Protein 8.7 H 12/20/19 12/20/19 12/21/19 23:06 23:06 10:35 WBC MCHC Lymph % (Auto) [place] % (Auto) [place] # Seg Neutrophils % Seg Neuts % (Manual) Lymphocytes % (Manual) Monocytes % (Manual) Seg Neutrophils # Seg Neutrophils # Man Lymphocytes # (Manual) Monocytes # (Manual) PT 16.9 H INR 1.35 H APTT 40.2 H D-Dimer Heparin Anti-Xa Level 0.14 L Sodium Potassium Chloride BUN Creatinine Glucose POC Glucose Magnesium Ferritin 454.6 H Lactate Dehydrogenase 193 H C-Reactive Protein 42.10 H Total Protein 12/21/19 12/21/19 12/21/19 10:35 10:35 10:39 WBC 21.3 H MCHC Lymph % (Auto) [place] % (Auto) [place] # Seg Neutrophils % Seg Neuts % (Manual) 82.0 H Lymphocytes % (Manual) 4.0 L Monocytes % (Manual) 10.0 H Seg Neutrophils # Seg Neutrophils # Man 17.5 H Lymphocytes # (Manual) 0.9 L Monocytes # (Manual) 2.1 H PT INR APTT D-Dimer Heparin Anti-Xa Level Sodium Potassium 5.4 H D Chloride 93.8 L BUN 25 H Creatinine Glucose 239 H POC Glucose Magnesium 2.60 H Ferritin Lactate Dehydrogenase C-Reactive Protein Total Protein 12/21/19 12/21/19 12/21/19 11:33 16:19 16:31 WBC MCHC Lymph % (Auto) [place] % (Auto) [place] # Seg Neutrophils % Seg Neuts % (Manual) Lymphocytes % (Manual) Monocytes % (Manual) Seg Neutrophils # Seg Neutrophils # Man Lymphocytes # (Manual) Monocytes # (Manual) PT INR APTT D-Dimer Heparin Anti-Xa Level 0.10 L Sodium Potassium Chloride BUN Creatinine Glucose POC Glucose 223 H 212 H Magnesium Ferritin Lactate Dehydrogenase C-Reactive Protein Total Protein 12/21/19 12/22/19 12/22/19 22:03 04:53 04:53 WBC 20.8 H MCHC Lymph % (Auto) [place] % (Auto) [place] # Seg Neutrophils % Seg Neuts % (Manual) 84.0 H Lymphocytes % (Manual) 6.0 L Monocytes % (Manual) 9.0 H Seg Neutrophils # Seg Neutrophils # Man 17.5 H Lymphocytes # (Manual) Monocytes # (Manual) 1.9 H PT INR APTT D-Dimer Heparin Anti-Xa Level Sodium 135 L Potassium Chloride 92.3 L BUN 33 H Creatinine 1.7 H Glucose 175 H POC Glucose 188 H Magnesium Ferritin Lactate Dehydrogenase C-Reactive Protein Total Protein 12/22/19 12/22/19 12/22/19 07:46 11:33 17:11 WBC MCHC Lymph % (Auto) [place] % (Auto) [place] # Seg Neutrophils % Seg Neuts % (Manual) Lymphocytes % (Manual) Monocytes % (Manual) Seg Neutrophils # Seg Neutrophils # Man Lymphocytes # (Manual) Monocytes # (Manual) PT INR APTT D-Dimer Heparin Anti-Xa Level Sodium Potassium Chloride BUN Creatinine Glucose POC Glucose 175 H 186 H 218 H Magnesium Ferritin Lactate Dehydrogenase C-Reactive Protein Total Protein 12/22/19 12/23/19 12/23/19 20:39 08:46 11:57 WBC MCHC Lymph % (Auto) [place] % (Auto) [place] # Seg Neutrophils % Seg Neuts % (Manual) Lymphocytes % (Manual) Monocytes % (Manual) Seg Neutrophils # Seg Neutrophils # Man Lymphocytes # (Manual) Monocytes # (Manual) PT INR APTT D-Dimer Heparin Anti-Xa Level Sodium Potassium Chloride BUN Creatinine Glucose POC Glucose 187 H 197 H 234 H Magnesium Ferritin Lactate Dehydrogenase C-Reactive Protein Total Protein 12/23/19 12/23/19 12/23/19 16:14 21:14 23:57 WBC MCHC Lymph % (Auto) [place] % (Auto) [place] # Seg Neutrophils % Seg Neuts % (Manual) Lymphocytes % (Manual) Monocytes % (Manual) Seg Neutrophils # Seg Neutrophils # Man Lymphocytes # (Manual) Monocytes # (Manual) PT INR APTT D-Dimer Heparin Anti-Xa Level Sodium Potassium Chloride BUN Creatinine Glucose POC Glucose 142 H 168 H 157 H Magnesium Ferritin Lactate Dehydrogenase C-Reactive Protein Total Protein 12/24/19 12/24/19 12/24/19 03:39 03:39 08:04 WBC 17.4 H MCHC Lymph % (Auto) [place] % (Auto) [place] # Seg Neutrophils % Seg Neuts % (Manual) Lymphocytes % (Manual) Monocytes % (Manual) Seg Neutrophils # Seg Neutrophils # Man Lymphocytes # (Manual) Monocytes # (Manual) PT INR APTT D-Dimer Heparin Anti-Xa Level Sodium 135 L Potassium Chloride 95.1 L BUN 38 H Creatinine Glucose 147 H POC Glucose 176 H Magnesium Ferritin Lactate Dehydrogenase C-Reactive Protein Total Protein
[2019-12-24] MEDS: VANCOMYCIN 2,000 MG in SODIUM CHLORIDE 0.9% 500 ML 500 ML IV SCH (15:58)
[2019-12-24] MEDS ORDERED: DIGOXIN 0.5 MG/2 ML INJ IV ONE (16:00)
[2019-12-24] MEDS: oxyCODONE /ACETAMINOPHEN 5-325MG TAB PO PRN (18:03)
[2019-12-24] MEDS: cefTRIAXone/NS 2 GM/100 ML 2 GM/100 ML BAG IV SCH (22:12)
[2019-12-25] MEDS: ACETAMINOPHEN 325 MG TAB PO PRN (00:02)
[2019-12-25] MEDS: INSULIN REGULAR, HUMAN 100 UNITS/1 ML SUB-Q SCH ×2 (08:52→12:14)
[2019-12-25] MEDS: METOPROLOL TARTRATE 100 MG TAB PO SCH (09:03)
[2019-12-25] MEDS: APIXABAN 5 MG TAB PO SCH (09:03)
[2019-12-25] MEDS: FUROSEMIDE 20 MG/2 ML INJ IV SCH (09:04)
--- NOTE | 2019-12-25 09:36 | Discharge Summary ---
Providers - Providers Date of Admission: 12/21/19 05:52 Date of discharge: 12/25/19 Attending physician: KIM SIMMS 12/21/19 03:31 Consult to Physician [CONS] Stat Comment: Consulting Provider: RIAZ BUSTILLO Physician Instructions: Reason For Exam: possible COVID 12/21/19 12:16 Consult to Cardiology [CONS] Routine Consulting Provider: LAYLA HERNANDEZ Reason For Exam: afib 12/23/19 07:44 Consult to Physician [CONS] Routine Comment: Consulting Provider: CAITLYN SIDHU Physician Instructions: Reason For Exam: pulm nodule Primary care physician: ATMOS[employer] PROFESSOR Hospitalization Reason for admission: Chest pain Condition: Stable Hospital course: History of Present Illness The patient is a 54-year-old male with hypertension, diabetes, obesity who came into the emergency room with complaints of left-sided chest pain. CT chest revealed evidence of left-sided pleural effusion along with nodular densities in his right lung. Infectious diseases was consulted due to elevated WBC and concern for possible COVID. The patient was admitted with diagnosis of acute hypoxic respiratory failure, COVID 19 suspected pneumonia, parapneumonic effusion, A. fib with RVR and right-sided pulmonary nodules. The patient was seen by pulmonary, infectious disease and cardiology in consultation. The patient's COVID-19 test was found to be negative. Patient was removed from contact/droplet precautions. Patient was maintained on antibiotics of Rocephin and vancomycin. ID also ordered fungal work-up with histoplasma urinary antigen, Aspergillus galactomannan and 1 3 beta D glucan which is pending. Pulmonary was consulted to evaluate left-sided pleural effusion and multiple nodules in the right upper lobe of the lung. Unfortunately, pulmonary attempted thoracentesis but not enough fluid to tap at this time. Patient did have further follow-up as an outpatient with PET scan. Pulmonary also felt patient likely has HUGO/OHS and will need further screening as an outpatient. Cardiology saw the patient in consultation for the A. fib with RVR and treated with luz ious medications for rate control. Eventually, NSR was achieved after IV digoxin. Patient is also treated with Lopressor and Eliquis. Patient was also noted to have echocardiogram that was completed on this hospitalization and revealed EF 30 to 35%, mild LVH, trace MR, trace TR. Therefore, patient had newly diagnosed acute combined systolic and diastolic heart failure. Patient was treated with 20 mg of Lasix. Patient will be discharged on Lopressor 100 mg twice daily, Eliquis. Patient denies any further chest pain and but requires home oxygen which has been arranged by case management. Patient is a follow-up with infectious disease, pulmonary and cardiology as an outpatient. Dedicated discharge time 42 minutes Disposition: DC-01 TO HOME OR SELFCARE Time spent for discharge: 42 - Discharge Diagnoses (1) Pneumonia Status: Acute (2) Atrial fibrillation with rapid ventricular response Status: Acute (3) Cardiomyopathy Status: Acute (4) Pleural effusion, left Status: Acute (5) Pneumonia Status: Acute Qualifiers: Laterality: bilateral (6) Diabetes Status: Chronic Qualifiers: Diabetes mellitus type: type 2 (7) HTN (hypertension) Status: Chronic Qualifiers: Hypertension type: essential hypertension Qualified Code(s): I10 - Essential (primary) hypertension (8) Acute combined systolic (congestive) and diastolic (congestive) heart failure Status: Acute Core Measure Documentation - Palliative Care Palliative Care/ Comfort Measures: Not Applicable - Core Measures Any of the following diagnoses?: none Exam - Constitutional Vitals: Temp Pulse Resp BP Pulse Ox 98.7 F 88 20 144/88 82 L 12/25/19 08:40 12/25/19 09:03 12/25/19 08:40 12/25/19 09:03 12/25/19 08:40 General appearance: Present: no acute distress, well-nourished - EENT Eyes: Present: PERRL ENT: hearing intact, clear oral mucosa - Neck Neck: Present: supple, normal ROM - Respiratory Respiratory effort: normal Respiratory: bilateral: CTA - Cardiovascular Heart Sounds: Present: S1 & S2. Absent: rub, click - Extremities Extremities: pulses symmetrical, No edema Peripheral Pulses: within normal limits - Abdominal General gastrointestinal: Present: soft, non-tender, non-distended, normal bowel sounds Male genitourinary: Present: normal - Integumentary Integumentary: Present: clear, warm, dry - Musculoskeletal Musculoskeletal: gait normal, strength equal bilaterally - Psychiatric Psychiatric: appropriate mood/affect, intact judgment & insight - Neurologic Neurologic: CNII-XII intact, moves all extremities Plan Activity: advance as tolerated Weight Bearing Status: Full Weight Bearing Diet: low cholesterol, low salt, diabetic Special Instructions: home oxygen via Follow up with: PRIMARY MD NICK [Primary Care Provider] - 3-5 Days CAITLYN SIDHU MD [Staff Physician] - 7 Days LAYLA HERNANDEZ MD [Staff Physician] - 7 Days RIAZ BUSTILLO MD [Staff Physician] - 7 Days Forms: AMA Form Prescriptions: cefUROXime [Ceftin] 500 mg PO Q12HR #20 tablet Apixaban [Eliquis] 5 mg PO Q12HR #60 tablet Digoxin [Lanoxin] 0.125 mg PO QDAY #30 tablet Furosemide [Lasix] 20 mg PO QDAY #30 tablet Metoprolol [Lopressor TAB] 100 mg PO BID #60 tablet DOXYCYCLINE Hyclate [Vibramycin CAP] 100 mg PO BID #20 tab
[2019-12-25] MEDS ORDERED: DIGOXIN 0.125 MG TAB PO SCH (10:00)
[2019-12-25 10:10] LABS: Myeloperoxidase Antibody <1.0 AI (<1.0)
--- NOTE | 2019-12-25 11:46 | Progress Note ---
Assessment and Plan - Patient Problems (1) Obesity Current Visit: Yes Status: Acute Qualifiers: Body mass index: BMI 40.0-44.9 (2) HUGO (obstructive sleep apnea) Current Visit: Yes Status: Suspected (3) Atrial fibrillation with rapid ventricular response Current Visit: Yes Status: Acute (4) Cardiomyopathy Current Visit: Yes Status: Acute (5) Pleural effusion, left Current Visit: Yes Status: Acute (6) Pneumonia Current Visit: Yes Status: Acute Qualifiers: Laterality: bilateral (7) Diabetes Current Visit: Yes Status: Chronic Qualifiers: Diabetes mellitus type: type 2 (8) HTN (hypertension) Current Visit: Yes Status: Chronic Qualifiers: Hypertension type: essential hypertension Qualified Code(s): I10 - Essential (primary) hypertension Subjective Principal diagnosis: AFib Interval history: reports sob Objective Vital Signs - 12hr 12/25/19 12/25/19 12/25/19 04:21 05:40 07:30 Temperature 99.7 F H Pulse Rate 77 152 H 86 Pulse Rate [ From Monitor] Respiratory 20 Rate Blood Pressure 137/87 O2 Sat by Pulse 96 Oximetry 12/25/19 12/25/19 12/25/19 08:40 09:03 10:00 Temperature 98.7 F Pulse Rate 80 88 Pulse Rate [ 88 From Monitor] Respiratory 20 Rate Blood Pressure 129/69 144/88 O2 Sat by Pulse 82 L 97 Oximetry Constitutional: no acute distress Eyes: non-icteric ENT: oropharynx moist Neck: supple Effort: normal Ascultation: Bilateral: diminished breath sounds CBC and BMP: 12/24/19 03:39 12/24/19 03:39 ABG, PT/INR, D-dimer: PT/INR, D-dimer PT 16.9 Sec. (12.2-14.9) H 12/21/19 10:35 INR 1.35 (0.87-1.13) H 12/21/19 10:35 D-Dimer 870.11 ng/mlDDU (0-234) H 12/20/19 23:06 Abnormal lab findings: Abnormal Labs 12/20/19 12/20/19 12/20/19 20:59 20:59 23:06 WBC 11.4 H MCHC 35 H Lymph % (Auto) 11.9 L [place] % (Auto) 10.7 H [place] # 1.2 H Seg Neutrophils % 75.0 H Seg Neuts % (Manual) Lymphocytes % (Manual) Monocytes % (Manual) Seg Neutrophils # 8.6 H Seg Neutrophils # Man Lymphocytes # (Manual) Monocytes # (Manual) PT 17.0 H INR 1.36 H APTT D-Dimer 870.11 H Heparin Anti-Xa Level Sodium 134 L Potassium Chloride 95.6 L BUN Creatinine Glucose 174 H POC Glucose Magnesium Ferritin Lactate Dehydrogenase C-Reactive Protein Total Protein 8.7 H 12/20/19 12/20/19 12/21/19 23:06 23:06 10:35 WBC MCHC Lymph % (Auto) [place] % (Auto) [place] # Seg Neutrophils % Seg Neuts % (Manual) Lymphocytes % (Manual) Monocytes % (Manual) Seg Neutrophils # Seg Neutrophils # Man Lymphocytes # (Manual) Monocytes # (Manual) PT 16.9 H INR 1.35 H APTT 40.2 H D-Dimer Heparin Anti-Xa Level 0.14 L Sodium Potassium Chloride BUN Creatinine Glucose POC Glucose Magnesium Ferritin 454.6 H Lactate Dehydrogenase 193 H C-Reactive Protein 42.10 H Total Protein 12/21/19 12/21/19 12/21/19 10:35 10:35 10:39 WBC 21.3 H MCHC Lymph % (Auto) [place] % (Auto) [place] # Seg Neutrophils % Seg Neuts % (Manual) 82.0 H Lymphocytes % (Manual) 4.0 L Monocytes % (Manual) 10.0 H Seg Neutrophils # Seg Neutrophils # Man 17.5 H Lymphocytes # (Manual) 0.9 L Monocytes # (Manual) 2.1 H PT INR APTT D-Dimer Heparin Anti-Xa Level Sodium Potassium 5.4 H D Chloride 93.8 L BUN 25 H Creatinine Glucose 239 H POC Glucose Magnesium 2.60 H Ferritin Lactate Dehydrogenase C-Reactive Protein Total Protein 12/21/19 12/21/19 12/21/19 11:33 16:19 16:31 WBC MCHC Lymph % (Auto) [place] % (Auto) [place] # Seg Neutrophils % Seg Neuts % (Manual) Lymphocytes % (Manual) Monocytes % (Manual) Seg Neutrophils # Seg Neutrophils # Man Lymphocytes # (Manual) Monocytes # (Manual) PT INR APTT D-Dimer Heparin Anti-Xa Level 0.10 L Sodium Potassium Chloride BUN Creatinine Glucose POC Glucose 223 H 212 H Magnesium Ferritin Lactate Dehydrogenase C-Reactive Protein Total Protein 04/12/22/19 12/22/19 22:03 04:53 04:53 WBC 20.8 H MCHC Lymph % (Auto) [place] % (Auto) [place] # Seg Neutrophils % Seg Neuts % (Manual) 84.0 H Lymphocytes % (Manual) 6.0 L Monocytes % (Manual) 9.0 H Seg Neutrophils # Seg Neutrophils # Man 17.5 H Lymphocytes # (Manual) Monocytes # (Manual) 1.9 H PT INR APTT D-Dimer Heparin Anti-Xa Level Sodium 135 L Potassium Chloride 92.3 L BUN 33 H Creatinine 1.7 H Glucose 175 H POC Glucose 188 H Magnesium Ferritin Lactate Dehydrogenase C-Reactive Protein Total Protein 12/22/19 12/22/19 12/22/19 07:46 11:33 17:11 WBC MCHC Lymph % (Auto) [place] % (Auto) [place] # Seg Neutrophils % Seg Neuts % (Manual) Lymphocytes % (Manual) Monocytes % (Manual) Seg Neutrophils # Seg Neutrophils # Man Lymphocytes # (Manual) Monocytes # (Manual) PT INR APTT D-Dimer Heparin Anti-Xa Level Sodium Potassium Chloride BUN Creatinine Glucose POC Glucose 175 H 186 H 218 H Magnesium Ferritin Lactate Dehydrogenase C-Reactive Protein Total Protein 12/22/19 12/23/19 12/23/19 20:39 08:46 11:57 WBC MCHC Lymph % (Auto) [place] % (Auto) [place] # Seg Neutrophils % Seg Neuts % (Manual) Lymphocytes % (Manual) Monocytes % (Manual) Seg Neutrophils # Seg Neutrophils # Man Lymphocytes # (Manual) Monocytes # (Manual) PT INR APTT D-Dimer Heparin Anti-Xa Level Sodium Potassium Chloride BUN Creatinine Glucose POC Glucose 187 H 197 H 234 H Magnesium Ferritin Lactate Dehydrogenase C-Reactive Protein Total Protein 12/23/19 12/23/19 12/23/19 16:14 21:14 23:57 WBC MCHC Lymph % (Auto) [place] % (Auto) [place] # Seg Neutrophils % Seg Neuts % (Manual) Lymphocytes % (Manual) Monocytes % (Manual) Seg Neutrophils # Seg Neutrophils # Man Lymphocytes # (Manual) Monocytes # (Manual) PT INR APTT D-Dimer Heparin Anti-Xa Level Sodium Potassium Chloride BUN Creatinine Glucose POC Glucose 142 H 168 H 157 H Magnesium Ferritin Lactate Dehydrogenase C-Reactive Protein Total Protein 12/24/19 12/24/19 12/24/19 03:39 03:39 08:04 WBC 17.4 H MCHC Lymph % (Auto) [place] % (Auto) [place] # Seg Neutrophils % Seg Neuts % (Manual) Lymphocytes % (Manual) Monocytes % (Manual) Seg Neutrophils # Seg Neutrophils # Man Lymphocytes # (Manual) Monocytes # (Manual) PT INR APTT D-Dimer Heparin Anti-Xa Level Sodium 135 L Potassium Chloride 95.1 L BUN 38 H Creatinine Glucose 147 H POC Glucose 176 H Magnesium Ferritin Lactate Dehydrogenase C-Reactive Protein Total Protein 12/24/19 12/24/19 12/24/19 12:32 17:11 20:50 WBC MCHC Lymph % (Auto) [place] % (Auto) [place] # Seg Neutrophils % Seg Neuts % (Manual) Lymphocytes % (Manual) Monocytes % (Manual) Seg Neutrophils # Seg Neutrophils # Man Lymphocytes # (Manual) Monocytes # (Manual) PT INR APTT D-Dimer Heparin Anti-Xa Level Sodium Potassium Chloride BUN Creatinine Glucose POC Glucose 183 H 223 H 203 H Magnesium Ferritin Lactate Dehydrogenase C-Reactive Protein Total Protein 12/25/19 09:00 WBC MCHC Lymph % (Auto) [place] % (Auto) [place] # Seg Neutrophils % Seg Neuts % (Manual) Lymphocytes % (Manual) Monocytes % (Manual) Seg Neutrophils # Seg Neutrophils # Man Lymphocytes # (Manual) Monocytes # (Manual) PT INR APTT D-Dimer Heparin Anti-Xa Level Sodium Potassium Chloride BUN Creatinine Glucose POC Glucose 180 H Magnesium Ferritin Lactate Dehydrogenase C-Reactive Protein Total Protein
[2019-12-25] MEDS ORDERED: FUROSEMIDE 20 MG TAB PO ONE (12:00)
[2019-12-25 12:07] VITALS: BP 108/64
--- NOTE | 2019-12-25 14:35 | Progress Note ---
Assessment and Plan Continue Eliquis and PO Lopressor 100mg BID. Pt will likely need home O2. Currently stable cardiac status. Pt may be discharged from a Cardiology standpoint. Recommend f/u with [facility]/Storage Administrator within 1-2 weeks of discharge. Pt seen in conjunction with Dr. Rosales, who agrees with the assessment and plan of care. - Patient Problems (1) Atrial fibrillation with rapid ventricular response Status: Acute (2) Cardiomyopathy Status: Acute (3) Pneumonia Status: Acute Qualifiers: Laterality: bilateral (4) Pleural effusion, left Status: Acute (5) HTN (hypertension) Status: Chronic Qualifiers: Hypertension type: essential hypertension Qualified Code(s): I10 - Essential (primary) hypertension (6) Diabetes Status: Chronic Qualifiers: Diabetes mellitus type: type 2 (7) HUGO (obstructive sleep apnea) Status: Suspected (8) Obesity Status: Chronic Qualifiers: Body mass index: BMI 40.0-44.9 Subjective Date of service: 12/25/19 Principal diagnosis: AFib Interval history: Pt reports ongoing SOB. Denies CP or any additional cardiac sx. Tele reviewed - pt currently in NSR 70-80s. Objective Last Vital Signs Temp 99.3 F 12/25/19 12:03 Pulse 102 H 12/25/19 12:03 Resp 18 12/25/19 12:03 BP 108/64 12/25/19 12:03 Pulse Ox 98 12/25/19 11:59 - Physical Examination General: No Apparent Distress HEENT: Positive: EOMI, Normocephaly, Mucus Membranes Moist Neck: Positive: neck supple, trachea midline. Negative: JVD/HJR Cardiac: Positive: Reg Rate and Rhythm, S1/S2 Lungs: Positive: Decreased Breath Sounds (bilaterally) Neuro: Positive: Grossly Intact, Motor Function Intact, Coordination Normal, Sensory Function Intact. Negative: Numbness, Weakness Abdomen: Positive: Soft, Active Bowel Sounds. Negative: Tender Skin: Negative: Rash, Suspicious Lesions Musculoskeletal: No Pain, Normal Range of Motion Extremities: Present: upper extr. pulses, lower extr. pulses. Absent: edema - Imaging and Cardiology EKG: report reviewed, image reviewed Echo: report reviewed (EF 30-35%; mild LVH; trace MR; trace TR) - Telemetry EKG Rhythm: Sinus Rhythm - EKG Sinus rhythms and dysrhythmias: sinus rhythm Supraventricular dysrhythmia: atrial premature complexe
[2019-12-25] MEDS ORDERED: DOXYCYCLINE 100 MG TAB PO SCH (22:00)
[2019-12-26 14:24] LABS: ANA Screen, IFA Negative (Negative)
== END 2019-12-25 14:00 | disposition home or self-care (01) | DRG 871 ==
LOC: ED 20:45 → 3A 12-21 05:52 → 4A 12-22 16:27
PROVIDERS: ADMIT Hospitalist; ATTEND Hospitalist
DX: A41.9 Sepsis, unspecified organism (principal); J96.01 Acute respiratory failure with hypoxia; J18.9 Pneumonia, unspecified organism; I50.41 Acute combined systolic (congestive) and diastolic (congestive) heart failure; I42.9 Cardiomyopathy, unspecified; Z68.41 Body mass index [BMI] 40.0-44.9, adult; N17.9 Acute kidney failure, unspecified; I48.91 Unspecified atrial fibrillation; E11.9 Type 2 diabetes mellitus without complications; G47.33 Obstructive sleep apnea (adult) (pediatric); E66.9 Obesity, unspecified; I11.0 Hypertensive heart disease with heart failure; R91.8 Other nonspecific abnormal finding of lung field; Z20.828 Contact with and (suspected) exposure to other viral communicable diseases; Z83.3 Family history of diabetes mellitus
CPT/HCPCS: 36415; 71046; 71275; 80048; 80053; 82728; 82962; 83615; 83690; 83735; 83880; 84145; 84439; 84443; 84484; 85007; 85025; 85027; 85379; 85520; 85610; 85730; 86021; 86038; 86140; 86160; 86403; 86689; 93005; 93010; 93306; 94760; G0378; J0696; J1160; J1644; J1815; J1885; J1940; J2270; J2405; J3370; J7040; Q9967